=== PATIENT | female | born 1945 | race Caucasian/White ===

== ENCOUNTER 2018-10-22 12:53 | Emergency (ER) | payer OTHER, MEDICARE ==
--- OUTSIDE RECORDS SUMMARY | 2018-10-22 12:56 | XMS REPORT | Clinical Summary ---
:1945 Author Organization [facility] Address [address] [place] [address] Care Team Providers Name Role Phone Asked, No Pcp Primary Care Provider Unavailable Allergies Active Allergy Reactions Severity Noted Date Comments Codeine GI Intolerance 04/07/2018 Medications Medication Sig Dispensed Refills Start Date End Date Status losartan-hydrochlo Take 1 tablet by 0 Active rothiazide mouth daily. (HYZAAR) 50-12.5 mg per tablet tiotropium Place 1 capsule 0 Active (SPIRIVA) 18 mcg into inhaler and per inhalation inhale once capsule daily. fluticasone-vilant Inhale 1 0 Active alejandro (BREO inhalations once ELLIPTA) 100-25 daily. mcg/dose blister with device powder for inhalation simvastatin Take 40 mg by 0 Active (ZOCOR) 40 MG mouth nightly. tablet carvedilol (COREG) Take 3.125 mg by 0 Active 3.125 MG tablet mouth 2 (two) times a day with meals. fexofenadine Take 180 mg by 0 Active (MARYJANE) 180 MG mouth daily. tablet MULTIVITAMIN ORAL Take by mouth. 0 Active calcium carb/vit Take by mouth. 0 Discontinued D3/minerals 8 (CALCIUM-VITAMIN D ORAL) aspirin (ECOTRIN) Take 81 mg by 0 Discontinued 81 MG enteric mouth daily. 8 coated tablet naproxen sodium Take by mouth 0 Discontinued (ALEVE) 220 mg nightly. 8 capsule traMADol (ULTRAM) Take 1 tablet 45 tablet 0 04/16/2018 50 mg tablet (50 mg total) by 8 mouth every 6 (six) hours as needed for moderate pain for up to 15 days. methocarbamol Take 1 tablet 120 tablet 0 04/16/2018 (ROBAXIN) 500 MG (500 mg total) 8 tablet by mouth every 8 (eight) hours as needed for muscle spasms for up to 30 days. Active Problems Problem Noted Date Lumbar stenosis 04/15/2018 Encounters Date Type Specialty Care Team Description 04/15/2018 Surgery General Surgery Niru Rosas LUMBAR LAMINECTOMY MD Gautam L3-L5 04/15/2018 Anesthesia Event General Surgery Bree Srivastava NP 04/15/2018 - Hospital Encounter Neurosurgery Niru Rosas Lumbar stenosis with 04/16/2018 MD Gautam neurogenic claudication 04/07/2018 Hospital Encounter Radiology Lissy Parham Preop testing MD Lucio 04/07/2018 Pre-Admit Testing Pre-Admission Niru Rosas Preop testing Appointment Testing MD Gautam (Primary Dx) 04/02/2018 Hospital Encounter Radiology Niru Rosas Low back pain, MD Gautam unspecified back pain laterality, unspecified chronicity, with sciatica presence unspecified 04/02/2018 Transcribe Orders Access Niru Rosas Low back pain, MD Gautam unspecified back pain laterality, unspecified chronicity, with sciatica presence unspecified (Primary Dx) after 10/21/2017 Social History Tobacco Use Types Packs/Day Years Used Date Current Every Day Smoker Cigarettes 1 Started: 04/07/1966 Smokeless Tobacco: Former User Tobacco Cessation: Ready to Quit: Yes Alcohol Use Drinks/Week oz/Week Comments Yes 10 Glasses of wine 6.0 Sex Assigned at Date Recorded Not on file Job Start Date Occupation Industry Not on file Not on file Not on file Travel History Travel Start Travel End No recent travel history available. Last Filed Vital Signs Vital Sign Reading Time Taken Blood Pressure 132/66 04/16/2018 8:07 AM CDT Pulse 60 04/16/2018 8:07 AM CDT Temperature 36.3 C (97.3 F) 04/16/2018 8:07 AM CDT Respiratory Rate 19 04/16/2018 8:07 AM CDT Oxygen Saturation 97% 04/16/2018 8:07 AM CDT Inhaled Oxygen Concentration - - Weight 75.5 kg (166 lb 8 oz) 04/15/2018 6:06 AM CDT Height 154.9 cm (5' 1") 04/15/2018 6:06 AM CDT Body Mass Index 31.46 04/15/2018 6:06 AM CDT Plan of Treatment Health Maintenance Due Date Last Done Comments BREAST CANCER SCREENING 1995 COLON CANCER SCREENING 1995 SHINGLES VACCINES (#1) 1995 65+ PNEUMOCOCCAL VACCINE (1 of 2 - PCV13) 2010 PNEUMOCOCCAL POLYSACCHARIDE VACCINE AGE 65 AND OVER 2010 INFLUENZA VACCINE 02/04/2019 Procedures Procedure Name Priority Date/Time Associated Comments Diagnosis SURGICAL PATHOLOGY Routine 04/15/2018 10:54 Results for this REQUEST AM CDT procedure are in the results section. XR LUMBAR SPINE 1 VW Routine 04/15/2018 10:10 Results for this AM CDT procedure are in the results section. XR LUMBAR SPINE 1 VW Routine 04/15/2018 9:14 Results for this AM CDT procedure are in the results section. XR LUMBAR SPINE 1 VW Routine 04/15/2018 9:13 Results for this AM CDT procedure are in the results section. NH AN ELECTIVE Routine 04/15/2018 9:11 ENDOTRACHEAL AIRWAY AM CDT Procedure Note - Amilcar Schofield CRNA - 04/15/2018 9:11 AM CDT Airway Date/Time: 04/15/2018 8:12 AM Performed by: AMILCAR SCHOFIELD Authorized by: KJ MURCIA Location: OR Urgency: Elective Difficult Airway: Yes Anesthesiologist: KJ MURCIA Resident/AVIATION ENGINEER/AA: AMILCAR SCHOFIELD Performed by: anesthesiologist Preoxygenated with 100% O2: Yes C-spine Precautions Maintained Throughout: Yes Mask Ventilation: Easy mask Final Airway Type: Endotracheal airway Final Endotracheal Airway: ETT Cuffed: Yes Technique Used: Direct laryngoscopy Devices/Methods Used in Placement: Intubating stylet Insertion Site: Oral Blade Type: Arroyo Laryngoscope Blade/Videolaryngoscope Blade Size: 2 ETT Size (mm): 7.0 Cuff at minimum occlusion pressure: Yes Measured from: Lips ETT to Lips (cm): 22 Placement Verified by: CO2 detection, direct visualization and equal breath sounds Laryngoscopic view: Grade IIb - view of arytenoids or posterior of glottis only Rapid Sequence Induction (RSI): No Modified RSI: No Number of Attempts at Approach: 2 DLx2, Arroyo 2 blade, initial attempt at intubation unsuccessful due to poor view of glottis & unable to advance tube; second attempt successful w/ repositioning and BURP maneuver; 7.0 ETT placed through the cords; bilateral breath sounds present; EtCO2 present LAMINECTOMY, LUMBAR 04/15/2018 8:00 AM CDT Lumbar stenosis with neurogenic claudication Case Notes PRONE POSITION, PRO AXIS TABLE, MICROSCOPE, AQUAMANTYS, 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 ESTIMATED GFR Routine 04/07/2018 3:08 Results for this PM CDT procedure are in the results section. PARTIAL THROMBOPLASTIN Routine 04/07/2018 3:08 Preop testing Results for this TIME (PTT) PM CDT procedure are in the results section. PROTHROMBIN TIME WITH Routine 04/07/2018 3:08 Preop testing Results for this INR PM CDT procedure are in the results section. BASIC METABOLIC PANEL Routine 04/07/2018 3:08 Preop testing Results for this PM CDT procedure are in the results section. HC COMPLETE BLD COUNT Routine 04/07/2018 3:08 Preop testing Results for this W/AUTO DIFF PM CDT procedure are in the results section. XR LUMBAR SPINE Routine 04/02/2018 12:37 Low back pain, Results for this COMPLETE W BENDING PM CDT unspecified back procedure are in pain laterality, the results unspecified section. chronicity, with sciatica presence unspecified after 10/21/2017 Results Surgical pathology request (04/15/2018 10:54 AM CDT) [facility] DEPARTMENT OF PATHOLOGY AND GENOMIC MEDICINE Surgical pathology report See link below for PDF [facility] DEPARTMENT OF Lab Report PATHOLOGY AND GENOMIC MEDICINE Result status This is Final Report [facility] DEPARTMENT OF for [id number] PATHOLOGY AND GENOMIC MEDICINE Performing Organization Address City/State/Zipcode Phone Number [facility] DEPARTMENT OF PATHOLOGY AND [address] [place] [address] [employer] MEDICINE XR Lumbar Spine 1 Vw (04/15/2018 10:10 AM CDT)Only the most recent of3 resultswithin the time period is included. Narrative Performed At EXAMINATION: XR LUMBAR SPINE 1 VW [facility] CLINICAL HISTORY: Intraoperative COMPARISON:None IMPRESSION: Single lateral intraoperative radiograph of the lumbar spine was obtained.The most inferior fully formed disc is presumed L5-S1. Posterior localizing instrument tips are located at the L5-S1 disc space posteriorly and posterior inferior aspect of L3 vertebral body. [id number] Procedure Note Interface, Radiology Results Incoming - 04/15/2018 10:25 AM CDT EXAMINATION: XR LUMBAR SPINE 1 VW CLINICAL HISTORY: Intraoperative COMPARISON: None IMPRESSION: Single lateral intraoperative radiograph of the lumbar spine was obtained. The most inferior fully formed disc is presumed L5-S1. Posterior localizing instrument tips are located at the L5-S1 disc space posteriorly and posterior inferior aspect of L3 vertebral body. [facility]-[id number] Performing Organization Address [facility] Phone Number [facility] [address] [place] [address] XR Chest 2 Vw (04/07/2018 4:08 PM CDT) Narrative Performed At Examination: XR CHEST 2 VW [facility] Clinical history: Z01.818 Encounter for other preprocedural examination, preop Comparison: September 21, 1998 Impression: 1. A 0.8 cm nodule overlying the left anterior fourth rib lateral of the left hilum is concerning for a true parenchymal nodule. 2. There is no infiltrate or effusion. The heart and pulmonary vasculature are within normal limits. 3. There is no acute osseous pathology. [facility]-[id number] Procedure Note Interface, Radiology Results Incoming - 04/07/2018 4:13 PM CDT Examination: XR CHEST 2 VW Clinical history: Z01.818 Encounter for other preprocedural examination, preop Comparison: September 21, 1998 Impression: 1. A 0.8 cm nodule overlying the left anterior fourth rib lateral of the left hilum is concerning for a true parenchymal nodule. 2. There is no infiltrate or effusion. The heart and pulmonary vasculature are within normal limits. 3. There is no acute osseous pathology. [facility]-[id number] Performing Organization Address [facility] Phone Number [facility] [address] [place] [address] Estimated GFR (04/07/2018 3:08 PM CDT) Estimated GFR >=90 mL/min/1.73 m2 [facility] DEPARTMENT OF Comment: PATHOLOGY AND GENOMIC CatergoryUnitsInterpretation MEDICINE G1 >=90 Normal or high G2 60-89Mildly decreased [id number] to moderately decreased [id number] to severely decreased G4 15-29Severely decreased G5 <15Kidney failure The eGFR was calculated using the Chronic Kidney Disease Epidemiology Collaboration (CKD-EPI) equation. Interpretation is based on recommendations of the National Kidney Foundation-Kidney Disease Outcomes Quality Initiative (NKF-KDOQI) published in 2014. Specimen Plasma specimen Performing Organization Address [facility] Phone Number [facility] DEPARTMENT OF PATHOLOGY AND [address] [place] [address] Partial thromboplastin time, activated (04/07/2018 3:08 PM CDT) PTT 28.9 23.0 - 36.0 sec [facility] DEPARTMENT OF PATHOLOGY Comment: AND [facility] PTT therapeutic range for unfractionated heparin is 61.0-112.0 seconds which corresponds to Anti-Xa 0.3-0.7 U/ml. Specimen Blood Performing Organization Address [facility] Phone Number [facility] DEPARTMENT OF PATHOLOGY AND [address] [place] [address] Prothrombin time with INR (04/07/2018 3:08 PM CDT) Prothrombin time 12.7 12.0 - 15.0 sec [facility] DEPARTMENT OF PATHOLOGY AND GENOMIC MEDICINE INR 0.9 [facility] DEPARTMENT OF Comment: PATHOLOGY AND GENOMIC The International Normalized Ratio (INR) is a therapeutic MEDICINE monitoring tool for patients who are stable on oral anticoagulant therapy. An INR of 2.0-3.0 is suggested for deep vein thrombosis/pulmonary embolism. Specimen Blood Performing Organization Address [facility] Phone Number [facility] DEPARTMENT OF PATHOLOGY AND [address] [place] [address] CBC with platelet and differential (04/07/2018 3:08 PM CDT) WBC 7.64 4.50 - 11.00 k/uL [facility] DEPARTMENT OF PATHOLOGY AND GENOMIC MEDICINE RBC 4.58 4.20 - 5.50 m/uL [facility] DEPARTMENT OF PATHOLOGY AND GENOMIC MEDICINE HGB 15.9 12.0 - 16.0 g/dL [facility] DEPARTMENT OF PATHOLOGY AND GENOMIC MEDICINE HCT 46.8 37.0 - 47.0 % [facility] DEPARTMENT OF PATHOLOGY AND GENOMIC MEDICINE MCV 102.2 (H) 82.0 - 100.0 fL [facility] DEPARTMENT OF PATHOLOGY AND GENOMIC MEDICINE MCH 34.7 (H) 27.0 - 34.0 pg [facility] DEPARTMENT OF PATHOLOGY AND GENOMIC MEDICINE MCHC 34.0 31.0 - 37.0 g/dL [facility] DEPARTMENT OF PATHOLOGY AND GENOMIC MEDICINE RDW - SD 46.4 37.0 - 55.0 fL [facility] DEPARTMENT OF PATHOLOGY AND GENOMIC MEDICINE MPV 10.8 8.8 - 13.2 fL [facility] DEPARTMENT OF PATHOLOGY AND GENOMIC MEDICINE Platelet count 267 150 - 400 k/uL [facility] DEPARTMENT OF PATHOLOGY AND GENOMIC MEDICINE Nucleated RBC 0.00 /100 WBC [facility] DEPARTMENT OF PATHOLOGY AND GENOMIC MEDICINE Neutrophils 60.5 39.0 - 69.0 % [facility] DEPARTMENT OF PATHOLOGY AND GENOMIC MEDICINE Lymphocytes 24.7 (L) 25.0 - 45.0 % [facility] DEPARTMENT OF PATHOLOGY AND GENOMIC MEDICINE Monocytes 10.9 (H) 0.0 - 10.0 % [facility] DEPARTMENT OF PATHOLOGY AND GENOMIC MEDICINE Eosinophils 2.6 0.0 - 5.0 % [facility] DEPARTMENT OF PATHOLOGY AND GENOMIC MEDICINE Basophils 0.9 0.0 - 1.0 % [facility] DEPARTMENT OF PATHOLOGY AND GENOMIC MEDICINE Immature granulocytes 0.4Comment: 0.0 - 1.0 % [facility] DEPARTMENT OF "Immature PATHOLOGY AND GENOMIC granulocytes" MEDICINE (promyelocytes, myelocytes, metamyelocytes) Specimen Blood Performing Organization Address City/[facility] Phone Number [facility] DEPARTMENT OF PATHOLOGY AND [address] [place] [id number] [employer] MEDICINE Basic metabolic panel (04/07/2018 3:08 PM CDT) Sodium 141 135 - 148 mEq/L [facility] DEPARTMENT OF PATHOLOGY AND GENOMIC MEDICINE Potassium 3.9 3.5 - 5.0 mEq/L [facility] DEPARTMENT OF PATHOLOGY AND GENOMIC MEDICINE Chloride 97 (L) 98 - 112 mEq/L [facility] DEPARTMENT OF PATHOLOGY AND GENOMIC MEDICINE CO2 27 24 - 31 mEq/L [facility] DEPARTMENT OF PATHOLOGY AND GENOMIC MEDICINE Anion gap 17@ANIO (H) 7 - 15 mEq/L [facility] DEPARTMENT OF PATHOLOGY AND GENOMIC MEDICINE BUN 14 8 - 23 mg/dL [facility] DEPARTMENT OF PATHOLOGY AND GENOMIC MEDICINE Creatinine 0.58 0.50 - 0.90 mg/dL [facility] DEPARTMENT OF PATHOLOGY AND GENOMIC MEDICINE Glucose 83 65 - 99 mg/dL [facility] DEPARTMENT OF PATHOLOGY AND GENOMIC MEDICINE Calcium 10.0 8.8 - 10.2 mg/dL [facility] DEPARTMENT OF PATHOLOGY AND GENOMIC MEDICINE Specimen Plasma specimen Performing Organization Address City/[facility] Phone Number [facility] DEPARTMENT OF PATHOLOGY AND [address] [place] [id number] GENOMIC MEDICINE XR Lumbar Spine Complete W Flex and Ext (04/02/2018 12:37 PM CDT) Narrative Performed At EXAMINATION: XR LUMBAR SPINE COMPLETE W FLEX & EXTEND [facility] CLINICAL HISTORY: M54.5 Low back pain, M54.5 COMPARISON:None IMPRESSION: 2 mm retrolisthesis L1 on L2 and L2 on L3, and 4 mm anterolisthesis L4 on L5, degenerative, which is not change on flexion or extension. Mild disc height loss L1 to and L3-4. Mild endplate sclerosis and small anterior osteophytes throughout the lumbar spine. There is at least moderate facet arthropathy L3-4, L4-5, and L5-S1 bilaterally. [id number] Procedure Note Hm Interface, Radiology Results Incoming - 04/02/2018 2:58 PM CDT EXAMINATION: XR LUMBAR SPINE COMPLETE W FLEX & EXTEND CLINICAL HISTORY: M54.5 Low back pain, M54.5 COMPARISON: None IMPRESSION: 2 mm retrolisthesis L1 on L2 and L2 on L3, and 4 mm anterolisthesis L4 on L5, degenerative, which is not change on flexion or extension. Mild disc height loss L1 to and L3-4. Mild endplate sclerosis and small anterior osteophytes throughout the lumbar spine. There is at least moderate facet arthropathy L3-4, L4-5, and L5-S1 bilaterally. [id number] Performing Organization Address City/State/Zipcode Phone Number [facility] [address] [place] [address] after 10/21/2017 Insurance Payer Benefit Plan / Group Subscriber ID Type Phone Address MEDICARE MEDICARE PART A AND B xxxxxxxxxx Medicare [place], [place] AARP AARP SUPPLEMENT xxxxxxxxxxx Commercial (Home) [place] [address] Advance Directives Patient has advance care planning documents on file. For more information, please contact:Delroy [facility] [place] [address]
--- NOTE | 2018-10-22 13:43 | RAD REPORT ---
EXAM DESCRIPTION: RAD - Wrist Right 3 View - 10/22/2018 1:33 pm CLINICAL HISTORY: Fall, right wrist pain COMPARISON: None. FINDINGS: Transverse fracture of the distal radial metaphysis is present. There is no distraction or angulation deformity. No pathologic component. Distal ulna is intact. No carpal bone fracture identi fied. Widening of the scapholunate joint space is present. This could be acute or chronic. No carpal bone dislocation. Moderate degenerative change involves the trapezium articulation with the scaphoid and first metacarpal. No foreign body. IMPRESSION: Distal right radius fracture without distraction or angulation deformity. Degenerative changes are present as detailed.
--- NOTE | 2018-10-22 13:52 | RAD REPORT ---
EXAM DESCRIPTION: RAD - Hand Right 3 View - 10/22/2018 1:33 pm CLINICAL HISTORY: Fall, hand and wrist pain COMPARISON: None. FINDINGS: Right radius fracture is detailed in separate report. No fracture of the hand. Prominent degenerative changes involve the DIP joints second and third digit s. Significant but less prominent degenerative change seen throughout the remainder of the IP joints. Slight joint space narrowing at the third MCP joint. There advanced degenerative changes at the firs t MCP joint with joint space narrowing, spurring and minimal subluxation of the first proximal phalan x. No foreign body. IMPRESSION: Advanced degenerative changes at the IP joints as detailed. No fracture of the hand or o ther acute finding. Distal radius fracture is separately detailed.
--- NOTE | 2018-10-22 14:09 | EDPHYS ---
Physician Documentation [facility] Name: Inocencia Rucker Age: 73 yrs Sex: Female : 1945 Arrival Date: 10/22/2018 Time: 12:56 Bed 24 Private MD: Rachelle Mead C ED Physician Andres Franks HPI: 10/22 13:14 This 73 yrs old Female presents to ER via Ambulatory with complaints of Arm pm1 Injury. 13:14 The patient or guardian complains of pain, swelling. The complaints affect the right pm1 wrist and PIP of right middle finger. Context: The problem was sustained at home, resulted from a fall, while walking. Onset: The symptoms/episode began/occurred just prior to arrival. Treatment prior to arrival includes: no previous treatment. Modifying factors: The symptoms are alleviated by remaining still, the symptoms are aggravated by movement. Associated signs and symptoms: Pertinent negatives: decreased range of motion, deformity, fever, numbness, tingling. Severity of symptoms: in the emergency department the symptoms are actually worse. The patient has not experienced similar symptoms in the past. The patient has not recently seen a physician. Patient was carrying a pot and tripped over her feet. Landed on her left hip area and on right arm. No head injury, headache, neck pain, LOC, dizziness, or chest pain. Historical: - Allergies: 13:00 Codeine; sg - PMHx: 13:00 Hypertension; sg - PSHx: 13:00 None; sg - Immunization history:: Adult Immunizations up to date. - Social history:: Smoking status: Patient/guardian denies using tobacco. - Ebola Screening: : Patient negative for fever greater than or equal to 101.5 degrees Fahrenheit, and additional compatible Ebola Virus Disease symptoms Patient denies exposure to infectious person Patient denies travel to an Ebola-affected area in the 21 days before illness onset No symptoms or risks identified at this time. ROS: 13:14 Constitutional: Negative for fever, chills, and weight loss, Eyes: Negative for injury, pm1 pain, redness, and discharge, ENT: Negative for injury, pain, and discharge, Neck: Negative for injury, pain, and swelling, Cardiovascular: Negative for chest pain, palpitations, and edema, Respiratory: Negative for shortness of breath, cough, wheezing, and pleuritic chest pain, Abdomen/GI: Negative for abdominal pain, nausea, vomiting, diarrhea, and constipation, Back: Negative for injury and pain. 13:14 Skin: Negative for injury, rash, and discoloration, Neuro: Negative for headache, weakness, numbness, tingling, and seizure. 13:14 MS/extremity: Positive for pain, swelling, of the right wrist and PIP of right middle finger. Exam: 13:14 Constitutional: This is a well developed, well nourished patient who is awake, alert, pm1 and in no acute distress. Head/Face: Normocephalic, atraumatic. Eyes: Pupils equal round and reactive to light, extra-ocular motions intact. Lids and lashes normal. Conjunctiva and sclera are non-icteric and not injected. Cornea within normal limits. Periorbital areas with no swelling, redness, or edema. ENT: Nares patent. No nasal discharge, no septal abnormalities noted. Tympanic membranes are normal and external auditory canals are clear. Oropharynx with no redness, swelling, or masses, exudates, or evidence of obstruction, uvula midline. Mucous membranes moist. Neck: Trachea midline, no thyromegaly or masses palpated, and no cervical lymphadenopathy. Supple, full range of motion without nuchal rigidity, or vertebral point tenderness. No Meningismus. Chest/axilla: Normal chest wall appearance and motion. Nontender with no deformity. No lesions are appreciated. Cardiovascular: Regular rate and rhythm with a normal S1 and S2. No gallops, murmurs, or rubs. Normal PMI, no JVD. No pulse deficits. Respiratory: Lungs have equal breath sounds bilaterally, clear to auscultation and percussion. No rales, rhonchi or wheezes noted. No increased work of breathing, no retractions or nasal flaring. Abdomen/GI: Soft, non-tender, with normal bowel sounds. No distension or tympany. No guarding or rebound. No evidence of tenderness throughout. Back: No spinal tenderness. No costovertebral tenderness. Full range of motion. Skin: Warm, dry with normal turgor. Normal color with no rashes, no lesions, and no evidence of cellulitis. 13:14 Musculoskeletal/extremity: Extremities: grossly normal except: noted in the right wrist: swelling, tenderness, There is no evidence of decreased ROM, deformity, noted in the PIP of right middle finger: no evidence of decreased ROM, deformity, Patient able to move right middle finger full range of motion, Circulation is intact in all extremities. Vital Signs: 12:59 BP 148 / 101; Pulse 92; Resp 16; Temp 97.6; Pulse Ox 98% on R/A; Weight 102.06 kg; Pain sg 10/10; 13:20 BP 140 / 96 LA Sitting (auto/reg); Pulse 87; Resp 18; Pulse Ox 98% on R/A; Pain 10/10; jp3 Procedures: 15:00 Splinting: Splint applied to right wrist using Orthoglass splint, applied by myself. pm1 Examined by me, post splint application: neurovascular intact, 2+ distal pulses palpable, brisk capillary refill noted, Patient tolerated well, right wrist sugar tong splint supporting dorsal and ventral aspect of PIP or right middle finger. MDM: 13:09 Patient medically screened. pm1 13:14 ED course: Patient offered pain medication, patient refused because she does not like pm1 the feeling of narcotics. Patient reported left hip pain on fall. Able to walk without difficulty. Offered left hip x-ray, patient refused. 14:04 Data reviewed: vital signs. Data interpreted: Pulse oximetry: on room air is 98 %. pm1 Interpretation: normal. Counseling: I had a detailed discussion with the patient and/or guardian regarding: the historical points, exam findings, and any diagnostic results supporting the discharge/admit diagnosis, radiology results, the need for outpatient follow up, for definitive care, a orthopedic surgeon, to return to the emergency department if symptoms worsen or persist or if there are any questions or concerns that arise at home. 10/22 13:14 Order name: Hand Right 3 View XRAY; Complete Time: 14:02 pm1 10/22 13:14 Order name: Wrist Right 3 View XRAY; Complete Time: 14:02 pm1 10/22 14:04 Order name: Sugar Tong Forearm Splint; Complete Time: 14:37 pm1 10/22 14:09 Order name: Sling; Complete Time: 14:23 pm1 Administered Medications: No medications were administered Disposition: 10/22/18 14:09 Discharged to Home. Impression: Closed distal right radius fracture - no distraction, no angulation , Unspecified sprain of right middle finger. - Condition is Stable. - Discharge Instructions: Cast or Splint Care, Adult, Finger Sprain, Adult, Wrist Fracture Treated With Immobilization, How to Use a Sling. - Medication Reconciliation Form, Thank You Letter, Antibiotic Education, Prescription Opioid Use form. - Follow up: Emergency Department; When: As needed; Reason: Worsening of condition. Follow up: Lucio Redding MD; When: 2 - 3 days; Reason: Recheck today's complaints, Continuance of care, Re-evaluation by your physician. - Problem is new. - Symptoms have improved. Addendum: 10/25/2018 00:11 Co-signature as Attending Physician, Andres Franks MD. g s Signatures: Dispatcher [employer] EDMS Francisco Stevenson RN RN sg Adonis Gregg NP [employer] pm1 Zenaida Cade RN RN tw2 Andres Franks MD MD Corrections: (The following items were deleted from the chart) 10/22 14:09 14:09 10/22/2018 14:09 Discharged to Home. Impression: Closed distal right radius pm1 fracture - no distraction, no angulation . Condition is Stable. Forms are Medication Reconciliation Form, Thank You Letter, Antibiotic Education, Prescription Opioid Use. Follow up: Emergency Department; When: As needed; Reason: Worsening of condition. Follow up: Lucio Redding; When: 2 - 3 days; Reason: Recheck today's complaints, Continuance of care, Re-evaluation by your physician. Problem is new. Symptoms have improved. pm1 14:57 14:09 10/22/2018 14:09 Discharged to Home. Impression: Closed distal right radius tw2 fracture - no distraction, no angulation ; Unspecified sprain of right middle finger. Condition is Stable. Forms are Medication Reconciliation Form, Thank You Letter, Antibiotic Education, Prescription Opioid Use. Follow up: Emergency Department; When: As needed; Reason: Worsening of condition. Follow up: Lucio Redding; When: 2 - 3 days; Reason: Recheck today's complaints, Continuance of care, Re-evaluation by your physician. Problem is new. Symptoms have improved. pm1
--- NOTE | 2018-10-22 14:09 | ER ---
Nurse's Notes [facility] Name: Inocencia Rucker Age: 73 yrs Sex: Female : 1945 Arrival Date: 10/22/2018 Time: 12:56 Bed 24 Private MD: Rachelle Mead C Diagnosis: Closed distal right radius fracture - no distraction, no angulation ;Unspecified sprain of right middle finger Presentation: 10/22 12:57 Presenting complaint: Patient states: lost my balance and fell, landed on right wrist sg and right side of my butt, reports pain and swelling, denies LOC or head injury at this time. 13:00 Transition of care: patient was not received from another setting of care. Onset of sg symptoms was October 22, 2018. Risk Assessment: Do you want to hurt yourself or someone else? Patient reports no desire to harm self or others. Initial Sepsis Screen: Does the patient meet any 2 criteria? No. Patient's initial sepsis screen is negative. Does the patient have a suspected source of infection? No. Patient's initial sepsis screen is negative. Care prior to arrival: None. 13:00 Method Of Arrival: Ambulatory sg 13:00 Acuity: SYLVAIN 4 sg Triage Assessment: 13:18 General: Appears in no apparent distress. well groomed. General: Behavior is calm, tw2 cooperative, appropriate for age. Pain: Complains of pain in right arm. Musculoskeletal: Circulation, motion, and sensation intact. Range of motion: intact in all extremities. Injury Description: n/a. Historical: - Allergies: 13:00 Codeine; sg - PMHx: 13:00 Hypertension; sg - PSHx: 13:00 None; sg - Immunization history:: Adult Immunizations up to date. - Social history:: Smoking status: Patient/guardian denies using tobacco. - Ebola Screening: : Patient negative for fever greater than or equal to 101.5 degrees Fahrenheit, and additional compatible Ebola Virus Disease symptoms Patient denies exposure to infectious person Patient denies travel to an Ebola-affected area in the 21 days before illness onset No symptoms or risks identified at this time. Screenin:20 Abuse screen: Denies threats or abuse. Nutritional screening: No deficits noted. tw2 Tuberculosis screening: No symptoms or risk factors identified. Fall Risk None identified. Assessment: 13:19 General: Appears in no apparent distress. well groomed, Behavior is calm, cooperative, tw2 appropriate for age. Pain: Complains of pain in right arm. Neuro: Level of Consciousness is awake, alert, obeys commands, Oriented to person, place, time, situation. Cardiovascular: Patient's skin is warm and dry. Respiratory: Reports Respiratory effort is even, unlabored, Respiratory pattern is regular. GI: No signs and/or symptoms were reported involving the gastrointestinal system. : No signs and/or symptoms were reported regarding the genitourinary system. EENT: No signs and/or symptoms were reported regarding the EENT system. Derm: No signs and/or symptoms reported regarding the dermatologic system. Musculoskeletal: Circulation, motion, and sensation intact. Range of motion: intact in all extremities. 14:48 Reassessment: Patient appears in no apparent distress at this time. No changes from tw2 previously documented assessment. Patient and/or family updated on plan of care and expected duration. Pain level reassessed. Patient is alert, oriented x 3, equal unlabored respirations, skin warm/dry/pink. provider at bedside applying splint at this time. Vital Signs: 12:59 BP 148 / 101; Pulse 92; Resp 16; Temp 97.6; Pulse Ox 98% on R/A; Weight 102.06 kg; Pain sg 10/10; 13:20 BP 140 / 96 LA Sitting (auto/reg); Pulse 87; Resp 18; Pulse Ox 98% on R/A; Pain 10/10; jp3 ED Course: 12:56 Patient arrived in ED. mr 12:56 Rachelle Mead MD is Private Physician. mr 13:00 Triage completed. sg 13:00 Arm band placed on. sg 13:05 Bed in low position. Call light in reach. Adult w/ patient. tw2 13:05 Warm blanket given. jp3 13:05 Pulse ox on. NIBP on. jp3 13:09 Adonis Gregg NP is PHCP. pm1 13:09 Andres Franks MD is Attending Physician. pm1 13:17 Zenaida Cade RN is Primary Nurse. tw2 13:33 X-ray completed. Portable x-ray completed in exam room. Patient tolerated procedure mh1 well. 13:33 Hand Right 3 View XRAY In Process Unspecified. EDMS 13:33 Wrist Right 3 View XRAY In Process Unspecified. EDMS 14:05 Lucio Redding MD is Referral Physician. pm1 14:39 No provider procedures requiring assistance completed. Patient did not have IV access tw2 during this emergency room visit. Administered Medications: No medications were administered Outcome: 14:09 Discharge ordered by MD. pm1 14:39 Discharged to home ambulatory, with family. tw2 14:39 Condition: stable 14:39 Discharge instructions given to patient, family, Instructed on discharge instructions, follow up and referral plans. sling and splint care Demonstrated understanding of instructions, follow-up care. 14:57 Patient left the ED. tw2 Signatures: Dispatcher [employer] EDMS Francisco Stevenson, VALDO RN Kathia Marshall mr RoscoeKristi 1 Adonis Gregg, JEWEL WOOL HANKER pm1 Zenaida Cade RN RN tw2 Gerry Crenshaw jp3
[2018-10-22 15:34] VITALS: TEMP 97.6; O2SAT 98
[2018-10-22 15:36] VITALS: BP 140/96
== END 2018-10-22 14:57 | disposition home or self-care (01) ==
LOC: ER 12:53
PROC: 2W3CX1Z Immobilization of Right Lower Arm using Splint (ICD-10-PCS; principal; 2018-10-22)
DX: S52.501A Unspecified fracture of the lower end of right radius, initial encounter for closed fracture (principal); S63.612A Unspecified sprain of right middle finger, initial encounter; W01.0XXA Fall on same level from slipping, tripping and stumbling without subsequent striking against object, initial encounter; Y93.89 Activity, other specified; Y92.009 Unspecified place in unspecified non-institutional (private) residence as the place of occurrence of the external cause; Z88.5 Allergy status to narcotic agent; I10 Essential (primary) hypertension
CPT/HCPCS: 99283

== ENCOUNTER 2022-03-28 13:06 | Day surgery (SDC) | payer OTHER, MEDICARE ==
--- NOTE | 2022-03-26 11:29 | RAD REPORT ---
EXAM DESCRIPTION: RAD - Chest Pa And Lat (2 Views) - 03/26/2022 11:13 am CLINICAL HISTORY: Pre op pending heart catheterization COMPARISON: CT chest 04/25/2021, portable chest 08/13/2015 TECHNIQUE: Frontal and lateral views of the chest were obtained. FINDINGS: The lungs are fibrotic. No acute infiltrate is seen. No failure or volume overload. Patient has scattered pulmonary nodules present. These are not changed size from April 2021 CT ches t study. Lack of growth over a 1 year interval would be favorable for a benign process. The April 07 CT report indicated the nodules were stable from even earlier examinations. Heart size is normal and central vasculature is within normal limits. No pleural effusion or pneumot horax seen. No acute bony finding noted. Osteopenic and degenerative bony changes are present. Acut e aortic process is not identifiable. IMPRESSION: No acute cardiopulmonary process. The above detailed findings are stable from prior imaging.
[2022-03-26 11:33] LABS: SARS-CoV-2 Antigen Rapid Res Negative (Negative)
[2022-03-26 11:44] LABS: Potassium 3.9 mmol/L (3.5-5.1)
[2022-03-26 11:55] LABS: RBC Red Blood Cell Count 4.78 M/uL (3.86-4.86)
[2022-03-26 11:56] LABS: Hematocrit 47.6 % (36.0-45.0); Lymphocytes % 13.3 % (15.3-44.8); MCV 99.6 fL (80-100); MPV 8.5 fL (7.6-11.3)
[2022-03-26 12:05] LABS: Protime INR 0.86
--- NOTE | 2022-03-27 06:33 | EKG ---
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
[~2022-03-28 13:06] MED LIST: HEPA 1000U/500MLS 2,000 UNIT/1,000 ML BAG IV ONE; LIDOCAINE 1% MPF 30 ML VIAL ONE
[2022-03-28] MEDS ORDERED: MIDAZOLAM HCL 2 MG/2 ML INJ ONE (13:10)
[2022-03-28] MEDS ORDERED: HEPARIN 5000 UNIT/ML 1 ML VIAL ONE (13:10)
[2022-03-28] MEDS ORDERED: FENTANYL CITR 100 MCG/2 ML ONE (13:10)
[2022-03-28] MEDS ORDERED: TICAGRELOR 90 MG TABLET PO ONE (13:12)
[2022-03-28] MEDS ORDERED: ASPIRIN 325 MG TAB ONE (13:12)
[2022-03-28] MEDS ORDERED: CLOPIDOGREL 75 MG TABLET ONE (13:12)
[2022-03-28] MEDS ORDERED: ATROPINE SULF 1 MG/10 ML SYR IV ONE (13:12)
[2022-03-28] MEDS ORDERED: NA CHLORIDE 0.9% 500 ML ONE (13:32)
[2022-03-28] MEDS ORDERED: ONDANSETRON 4 MG/2 ML VIAL ONE (13:58)
[2022-03-28 15:13] VITALS: TEMP 97
--- NOTE | 2022-03-28 15:29 | OP ---
Date of Procedure: 03/28/2022 Surgeon: BRIE PACE Procedures Performed: 1.Selective coronary angiogram. 2.Left heart catheterization. 3.Distal aortogram with runoff and peripheral angiogram. Access: Right radial artery 6-Icelandic closed with TR band. Complications: None. Bleeding: Less than 20 mL. Anesthesia: Total sedation time was 0. No sedation was done. Complications: None. Indications: 1.Peripheral vascular disease with severe claudication. 2.Known coronary artery disease with unstable angina symptoms and significant shortness of breath. Description Of Procedure: After risks, benefits, alternatives were explained, the patient agreed to the procedure and signed informed consent. The patient was brought into the cardiac catheterization laboratory, prepped and draped in the usual sterile fashion. Then, we accessed right radial artery u sing pediatric micropuncture kit, placed a 6-Icelandic Slender sheath. I took 5-Icelandic [place] 4.0 cathet er into the aortic root, engaged the left main and right coronary artery, took standard views, and ca theter was pushed across the aortic valve into the LV, measured LVEDP and LA pressure and then pullba ck did not record any gradient. Then, I exchanged for long pigtail, placed into the distal aorta, pe rformed this aortogram and runoff all the way to the toes. I then removed the catheter and sheath, p laced TR band with good hemostasis. Findings: 1.Left main; very long with luminal irregularities. No significant stenosis. 2.LAD; moderate size vessel with mid 40% stenosis focally and then luminal irregularities, normal di agonal branches. 3.Left circumflex is very small with diffuse 20% stenosis. 4.RCA; very large and dominant, proximal 30%, then another lesion in the proximal segment about 40%, and then distal about 40% to 50%. 5.LVEDP slightly elevated at 40 mmHg. 6.LA pressure was normal at 9 mmHg. Conclusion: 1.Moderate coronary artery disease that is nonobstructive. 2.Normal LA pressure. 3.Borderline elevated LVEDP. Peripheral Angiogram: 1.Distal aorta appears aneurysmal. 2.Right common iliac has proximal 30% to 40% stenosis and then the right femoral artery, right SFA a nd profunda and below the knee circulation including anterior tibial, posterior tibial and peroneal a ll are with mild luminal irregularities; however, the vessels below the knee are very small, but no s ignificant disease. 3.The left common iliac has 40% focal stenosis, but good flow. Then, the left femoral and the left SFA and profunda and the 3 vessels below the knee were all with luminal irregularities. They were mi ld, but again small vessels throughout. Conclusion: 1.Moderate nonobstructive coronary artery disease. 2.Distal aorta aneurysm. 3.Moderate peripheral vascular disease. Plan: 1.Aggressive risk factor modification. 2.We will obtain abdominal aortic ultrasound to size the aneurysm and we will do good blood pressure control and surveillance on that. SR/MODL Voice ID: [id number] Report ID: [id number]
[2022-03-28 16:39] VITALS: BP 108/75; O2SAT 97
== END 2022-03-28 16:46 | disposition home or self-care (01) ==
LOC: CCL 13:06
PROVIDERS: ATTEND Internal Medicine
DX: I70.213 Atherosclerosis of native arteries of extremities with intermittent claudication, bilateral legs (principal); I25.10 Atherosclerotic heart disease of native coronary artery without angina pectoris; I71.4 Abdominal aortic aneurysm, without rupture; I10 Essential (primary) hypertension; E78.5 Hyperlipidemia, unspecified; Z87.891 Personal history of nicotine dependence; Z79.82 Long term (current) use of aspirin; Z79.52 Long term (current) use of systemic steroids; Z79.899 Other long term (current) drug therapy; Z88.5 Allergy status to narcotic agent; Z88.8 Allergy status to other drugs, medicaments and biological substances; Z20.822 Contact with and (suspected) exposure to COVID-19; Z82.49 Family history of ischemic heart disease and other diseases of the circulatory system
CPT/HCPCS: 93005; 85025; 80048; 36415 ×2; 85610; 85730; 71046; 75630; 93458; 76937; 87811; G0433; C1893; J1644 ×3; J7040; J2250; J2405; J3010

== ENCOUNTER 2022-08-06 00:57 | Emergency (ER) | payer OTHER, MEDICARE ==
--- OUTSIDE RECORDS SUMMARY | 2022-08-06 01:02 | XMS REPORT | Continuity of Care Document ---
:1945 Author Organization [facility] t Address [address] [place] [address] Care Team Providers Name Role Phone Asked, No Pcp Primary Care Physician Unavailable ADI BLACKMAN Attending Clinician Unavailable TONY RASHID Attending Clinician Unavailable TONY RASHID Attending Clinician Unavailable JORGE LUIS ADAMS Attending Clinician Unavailable Patricia Price Attending Clinician Unavailable Therapist, [facility] Attending Clinician Unavailable Jorge Luis Adams MD Attending Clinician Doctor Unassigned, [place] Attending Clinician Unavailable Tony Rashid DO Attending Clinician Payers Payer Name Policy Type Policy Number Effective Date Expiration Date S mak MEDICARE PART A AND [id number] 2011 B 00:00:00 MEDICARE PART A \T\ [id number] 2010 B 00:00:00 [facility] [id number] 2015 MEDICARE SUPPLEMENT 00:00:00 Problems Condition Condition Condition Status Onset Resolution Last Treating Co mments Source Name Details Category Date Date Treatment Clinician Date Lumbar Lumbar Disease Active 2017-07 [facility] stenosis stenosis 0-10 st 00:00: Hospita 00 l No known No known Disease Unive rs active active ity of problems problems [facility] Allergies, Adverse Reactions, Alerts Allergy Allergy Status Severity Reaction(s) Onset Inactive Treating Comm ents Source Name Type Date Date Clinician Zaid Suazo Active [facility] ty to 02-08 Health adverse 00:00: reaction 00 s Codeine Propensi Active GI 2017-07 [facility]i ty to Intolerance 0-02 st adverse 00:00: Hospita reaction 00 l s to drug CODEINE DRUG Active N/V 2015- Univers INGREDI 7 ity of 00:00: [place] 00 Medical Branch Codeine Propensi Active Nausea Univers ty to and/or 01-22 ity of adverse Vomiting 00:00: [place] reaction 00 Medical s Branch Social History Social Habit Start Date Stop Date Quantity Comments Source Exposure to 2022-07-13 2022-07-23 Not sure University of SARS-CoV-2 (event) 00:00:00 15:27:00 [facility] Cigarette 2022-07-23 2022-07-23 University of pack-years 00:00:00 00:00:00 [facility] Tobacco Comment 2022-07-23 2022-07-23 Tried patches - Univ ersity of 00:00:00 00:00:00 didn't work; gum [place] Me dical - bad tasting; Branch medication - Wellbutrin didn't work; Chantix did work - stopped taking it when she felt she'd stopped smoking. Alcohol Comment 2022-07-23 2022-07-23 white wine/day Unive rsity of 00:00:00 00:00:00 [facility] Tobacco use and 2018-04-17 2018-04-17 Former user [facility] t exposure 00:00:00 00:00:00 Hospital Alcohol intake 2018-04-17 2018-04-17 Current drinker Metho dist 00:00:00 00:00:00 of [facility] (finding) Cigarettes smoked 2018-04-07 2018-04-[address] current (pack per 00:00:00 00:00:00 Hospita l day) - Reported History of tobacco 2015-04-06 Passive smoker Un iversity of use 00:00:00 [facility] Sex [birth year] Gnosticism 00:00:00 00:00:00 Hospital Smoking Status Start Date Stop Date Source Smokes tobacco daily 2022-07-23 00:00:00 Univers ity of [facility] Tobacco smoking [facility] consumption unknown Ex-smoker 2016-01-23 00:00:00 2016-01-23 [facility] 00:00:00 Medical Branch Medications Ordered Filled Start Stop Current Ordering Indication Dosage Frequency Signature Comments Components Source Medication Medication Date Date Medication? Clinician (SIG) Name Name hydroCHLORO 2023-0 Yes 12.5mg Take 12.5 Univers thiazide 1-17 mg by ity of 12.5 mg 15:50: mouth in [place] capsule 37 the Medical morning. Branch Indication s: takes a tablet, @ 12.5 mg hydroCHLORO 2023-0 Yes 12.5mg Take 12.5 Univers thiazide 1-17 mg by ity of (MICROZIDE) 15:50: mouth in [place] 12.5 mg 37 the Medical capsule morning. Branch hydroCHLORO 2023-0 Yes 12.5mg Take 12.5 Univers thiazide 1-17 mg by ity of 12.5 mg 15:50: mouth in [place] capsule 37 the Medical morning. Branch Indication s: takes a tablet, @ 12.5 mg hydroCHLORO 2023-0 Yes 12.5mg Take 12.5 Univers thiazide 1-17 mg by ity of (MICROZIDE) 15:50: mouth in [place] 12.5 mg 37 the Medical capsule morning. Branch hydroCHLORO 2023-0 Yes 12.5mg Take 12.5 Univers thiazide 1-17 mg by ity of 12.5 mg 15:50: mouth in [place] capsule 37 the Medical morning. Branch Indication s: takes a tablet, @ 12.5 mg hydroCHLORO 2023-0 Yes 12.5mg Take 12.5 Univers thiazide 1-17 mg by ity of (MICROZIDE) 15:50: mouth in [place] 12.5 mg 37 the Medical capsule morning. Branch hydroCHLORO 2023-0 Yes 12.5mg Take 12.5 Univers thiazide 1-17 mg by ity of 12.5 mg 15:50: mouth in [place] capsule 37 the Medical morning. Branch Indication s: takes a tablet, @ 12.5 mg hydroCHLORO 2023-0 Yes 12.5mg Take 12.5 Univers thiazide 1-17 mg by ity of (MICROZIDE) 15:50: mouth in [place] 12.5 mg 37 the Medical capsule morning. Branch hydroCHLORO 2023-0 Yes 12.5mg Take 12.5 Univers thiazide 1-17 mg by ity of 12.5 mg 15:50: mouth in [place] capsule 37 the Medical morning. Branch Indication s: takes a tablet, @ 12.5 mg hydroCHLORO 2023-0 Yes 12.5mg Take 12.5 Univers thiazide 1-17 mg by ity of (MICROZIDE) 15:50: mouth in [place] 12.5 mg 37 the Medical capsule morning. Branch hydroCHLORO 2023-0 Yes 12.5mg Take 12.5 Univers thiazide 1-17 mg by ity of 12.5 mg 15:50: mouth in [place] capsule 37 the Medical morning. Branch Indication s: takes a tablet, @ 12.5 mg hydroCHLORO 2023-0 Yes 12.5mg Take 12.5 Univers thiazide 1-17 mg by ity of (MICROZIDE) 15:50: mouth in [place] 12.5 mg 37 the Medical capsule morning. Branch hydroCHLORO 2023-0 Yes 12.5mg Take 12.5 Univers thiazide 1-17 mg by ity of 12.5 mg 15:50: mouth in [place] capsule 37 the Medical morning. Branch Indication s: takes a tablet, @ 12.5 mg hydroCHLORO 2023-0 Yes 12.5mg Take 12.5 Univers thiazide 1-17 mg by ity of (MICROZIDE) 15:50: mouth in [place] 12.5 mg 37 the Medical capsule morning. Branch losartan-hy 2022-0 Yes 1{tbl} Take 1 Un susy drochloroth 1-17 tablet by ity of iazide 15:49: mouth [place] 50-12.5 mg 29 daily. Medical per tablet Branch ASPIRIN LOW 2022-0 Yes Take by Uni vers DOSE ORAL 1-17 mouth. ity of 15:49: [place] 29 Medical Branch montelukast 2022-0 Yes 10mg Take 10 mg Univers 10 mg 1-17 by mouth ity of tablet 15:49: in the [place] 29 morning. Medical Branch amLODIPine 2022-0 Yes 5mg Take 5 mg Un susy 5 mg tablet 1-17 by mouth ity of 15:49: in the [place] 29 morning. Medical Branch losartan 50 2022-0 Yes 50mg Take 50 mg Univers mg tablet 1-17 by mouth ity of 15:49: in the [place] 29 morning. Medical Indication Branch s: taking separately , x ~2-3 yrs ago; due to potential cancer losartan-hy 2022-0 Yes 1{tbl} Take 1 Un susy drochloroth 1-17 tablet by ity of iazide 15:49: mouth [place] 50-12.5 mg 29 daily. Medical per tablet Branch ASPIRIN LOW Yes Take by Uni vers DOSE ORAL 1-17 mouth. ity of 15:49: [place] [address] Medical Branch montelukast Yes 10mg Take 10 mg Univers 10 mg 1-17 by mouth ity of tablet 15:49: in the [place] 29 morning. Medical Branch amLODIPine 2022-0 Yes 5mg Take 5 mg Un susy 5 mg tablet 1-17 by mouth ity of 15:49: in the [place] 29 morning. Medical Branch losartan 50 0 Yes 50mg Take 50 mg Univers mg tablet 1-17 by mouth ity of 15:49: in the [place] [address] morning. Medical Indication Branch s: taking separately , x ~2-3 yrs ago; due to potential cancer losartan-hy Yes 1{tbl} Take 1 Un susy drochloroth 1-17 tablet by ity of iazide 15:49: mouth [place] 50-12.5 mg 29 daily. Medical per tablet Branch ASPIRIN LOW Yes Take by Uni vers DOSE ORAL 1-17 mouth. ity of 15:49: [place] [address] Medical Branch montelukast Yes 10mg Take 10 mg Univers 10 mg 1-17 by mouth ity of tablet 15:49: in the [place] [address] morning. Medical Branch amLODIPine 0 Yes 5mg Take 5 mg Un susy 5 mg tablet 1-17 by mouth ity of 15:49: in the [place] [address] morning. Medical Branch losartan 50 0 Yes 50mg Take 50 mg Univers mg tablet 1-17 by mouth ity of 15:49: in the [place] 29 morning. Medical Indication Branch s: taking separately , x ~2-3 yrs ago; due to potential cancer losartan-hy 2022-0 Yes 1{tbl} Take 1 Un susy drochloroth 1-17 tablet by ity of iazide 15:49: mouth [place] 50-12.5 mg 29 daily. Medical per tablet Branch ASPIRIN LOW Yes Take by Uni vers DOSE ORAL 1-17 mouth. ity of 15:49: [place] [address] Medical Branch montelukast 2023-0 Yes 10mg Take 10 mg Univers 10 mg 1-17 by mouth ity of tablet 15:49: in the [place] 29 morning. Medical Branch amLODIPine 2022-0 Yes 5mg Take 5 mg Un susy 5 mg tablet 1-17 by mouth ity of 15:49: in the [place] 29 morning. Medical Branch losartan 50 2022-0 Yes 50mg Take 50 mg Univers mg tablet 1-17 by mouth ity of 15:49: in the [place] 29 morning. Medical Indication Branch s: taking separately , x ~2-3 yrs ago; due to potential cancer losartan-hy 2022-0 Yes 1{tbl} Take 1 Un susy drochloroth 1-17 tablet by ity of iazide 15:49: mouth [place] 50-12.5 mg 29 daily. Medical per tablet Branch ASPIRIN LOW 0 Yes Take by Uni vers DOSE ORAL 1-17 mouth. ity of 15:49: Medical Branch montelukast 2022-0 Yes 10mg Take 10 mg Univers 10 mg 1-17 by mouth ity of tablet 15:49: in the [place] 29 morning. Medical Branch amLODIPine 2022-0 Yes 5mg Take 5 mg Un susy 5 mg tablet 1-17 by mouth ity of 15:49: in the [place] 29 morning. Medical Branch losartan 50 2022-0 Yes 50mg Take 50 mg Univers mg tablet 1-17 by mouth ity of 15:49: in the [place] 29 morning. Medical Indication Branch s: taking separately , x ~2-3 yrs ago; due to potential cancer losartan-hy 2022-0 Yes 1{tbl} Take 1 Un susy drochloroth 1-17 tablet by ity of iazide 15:49: mouth [place] 50-12.5 mg 29 daily. Medical per tablet Branch ASPIRIN LOW 2022-0 Yes Take by Uni vers DOSE ORAL 1-17 mouth. ity of 15:49: Medical Branch montelukast 2022-0 Yes 10mg Take 10 mg Univers 10 mg 1-17 by mouth ity of tablet 15:49: in the [place] 29 morning. Medical Branch amLODIPine 2022-0 Yes 5mg Take 5 mg Un susy 5 mg tablet 1-17 by mouth ity of 15:49: in the [place] 29 morning. Medical Branch losartan 50 2022-0 Yes 50mg Take 50 mg Univers mg tablet 1-17 by mouth ity of 15:49: in the [place] 29 morning. Medical Indication Branch s: taking separately , x ~2-3 yrs ago; due to potential cancer losartan-hy Yes 1{tbl} Take 1 Un susy drochloroth 1-17 tablet by ity of iazide 15:49: mouth [place] 50-12.5 mg 29 daily. Medical per tablet Branch ASPIRIN LOW Yes Take by Uni vers DOSE ORAL 1-17 mouth. ity of 15:49: [place] 29 Medical Branch montelukast Yes 10mg Take 10 mg Univers 10 mg 1-17 by mouth ity of tablet 15:49: in the [place] 29 morning. Medical Branch amLODIPine Yes 5mg Take 5 mg Un susy 5 mg tablet 1-17 by mouth ity of 15:49: in the [place] 29 morning. Medical Branch losartan 50 Yes 50mg Take 50 mg Univers mg tablet 1-17 by mouth ity of 15:49: in the [place] 29 morning. Medical Indication Branch s: taking separately , x ~2-3 yrs ago; due to potential cancer amLODIPine 2021-07 Yes 5mg Take 5 mg Un susy 5 mg tablet 2-12 by mouth ity of 10:38: in the [place] [address] morning. Medical Branch amLODIPine 2021-07 Yes 5mg Take 5 mg Un susy 5 mg tablet 2-12 by mouth ity of 10:38: in the [place] [address] morning. Medical Branch amLODIPine 2021-07 Yes 5mg Take 5 mg Un susy 5 mg tablet 2-12 by mouth ity of 10:38: in the [place] [address] morning. Medical Branch amLODIPine 2021-07 Yes 5mg Take 5 mg Un susy 5 mg tablet 2-12 by mouth ity of 10:38: in the [place] 58 morning. Medical Branch amLODIPine 2021-07 Yes 5mg Take 5 mg Un susy 5 mg tablet 2-12 by mouth ity of 10:38: in the [place] [address] morning. Medical Branch amLODIPine 2021-07 Yes 5mg Take 5 mg Un susy 5 mg tablet 2-12 by mouth ity of 10:38: in the [place] 58 morning. Medical Branch montelukast 2021-07 Yes 10mg Take 10 mg Univers 10 mg 2-12 by mouth ity of tablet 10:37: in the [place] 39 morning. [facility] Branch montelukast 2021-07 Yes 10mg Take 10 mg Univers 10 mg 2-12 by mouth ity of tablet 10:37: in the [place] 39 morning. [facility] Branch montelukast 2021-07 Yes 10mg Take 10 mg Univers 10 mg 2-12 by mouth ity of tablet 10:37: in the [place] 39 morning. [facility] Branch montelukast 2021-07 Yes 10mg Take 10 mg Univers 10 mg 2-12 by mouth ity of tablet 10:37: in the [place] 39 morning. [facility] Branch montelukast 2021-07 Yes 10mg Take 10 mg Univers 10 mg 2-12 by mouth ity of tablet 10:37: in the [place] 39 morning. [facility] montelukast 2021-07 Yes 10mg Take 10 mg Univers 10 mg 2-12 by mouth ity of tablet 10:37: in the [place] [address] morning. [facility] Branch chlorhexidi 2020- No [id number] 15mL Use 15 mL [facility] ne 03-02 in the Health (Peridex) 00:00: 04:59 mouth or 0.12 % 00 :00 throat if solution needed for wound care for up to 14 days. chlorhexidi 2020- No [id number] 15mL Use 15 mL UT ne 03-02 in the Health (Peridex) 00:00: 04:59 mouth or 0.12 % 00 :00 throat if solution needed for wound care for up to 14 days. simvastatin Yes 40mg QD Take 40 mg [facility] (Zocor) 40 -06 by mouth 1 Hea lth MG tablet 13:54: (one) time 29 each day. tiotropium Yes 1{capsu QD Place 1 U T (Spiriva) 02-09 le} capsule Health 18 MCG 13:54: into inhalation 29 inhaler capsule and inhale 1 (one) time each day. aspirin 81 Yes 81mg QD Take 81 mg U T MG EC 8-06 by mouth 1 Health tablet 13:54: (one) time 29 each day. simvastatin Yes 40mg QD Take 40 mg UT (Zocor) 40 8-06 by mouth 1 Hea lth MG tablet 13:54: (one) time 29 each day. tiotropium 2020-0 Yes 1{capsu QD Place 1 U T (Spiriva) 8-06 le} capsule Health 18 MCG 13:54: into inhalation 29 inhaler capsule and inhale 1 (one) time each day. aspirin 81 2020-0 Yes 81mg QD Take 81 mg U T MG EC 8-06 by mouth 1 Health tablet 13:54: (one) time 29 each day. simvastatin 2020-0 Yes 40mg QD Take 40 mg UT (Zocor) 40 8-06 by mouth 1 Hea lth MG tablet 13:54: (one) time 29 each day. tiotropium 2020-0 Yes 1{capsu QD Place 1 U T (Spiriva) 8-06 le} capsule Health 18 MCG 13:54: into inhalation 29 inhaler capsule and inhale 1 (one) time each day. aspirin 81 0 Yes 81mg QD Take 81 mg U T MG EC 8-06 by mouth 1 Health tablet 13:54: (one) time 29 each day. simvastatin 2020-0 Yes 40mg QD Take 40 mg UT (Zocor) 40 8-06 by mouth 1 Hea lth MG tablet 08:54: (one) time 29 each day. tiotropium 0 Yes 1{capsu QD Place 1 U T (Spiriva) 8-06 le} capsule Health 18 MCG 08:54: into inhalation 29 inhaler capsule and inhale 1 (one) time each day. aspirin 81 0 Yes 81mg QD Take 81 mg U T MG EC 8-06 by mouth 1 Health tablet 08:54: (one) time 29 each day. chlorhexidi 2020-0 2020- No [id number] 15mL Use 15 mL UT ne 02-08 in the Health (Peridex) 00:00: 04:59 mouth or 0.12 % 00 :00 throat if solution needed for wound care for up to 14 days. Begin 2 days prior to dental procedure amoxicillin 2020-0 2020- No [id number] 500mg [id number] Take 1 UT (Amoxil) 02-0816 [id number] capsule H ealth 500 MG 00:00: 04:59 3D (500 mg capsule 00 :00 total) by mouth 3 (three) times a day for 10 days. Begin 3 days prior to dental procedure hydroCHLORO 2021-0 Yes 12.5mg QD Take 12.5 UT thiazide 7-21 mg by Health (HYDRODiuri 00:00: mouth 1 l) 12.5 MG 00 (one) time tablet each day. losartan 1-0 Yes 50mg QD Take 50 mg UT (Cozaar) 50 7-21 by mouth 1 He alth MG tablet 00:00: (one) time 00 each day. montelukast 2020-0 Yes 10mg QD Take 10 mg UT (Singulair) 7-21 by mouth 1 He alth 10 MG 00:00: (one) time tablet 00 each day. hydroCHLORO 2020-0 Yes 12.5mg QD Take 12.5 UT thiazide 7-21 mg by Health (HYDRODiuri 00:00: mouth 1 l) 12.5 MG 00 (one) time tablet each day. losartan 2020-0 Yes 50mg QD Take 50 mg UT (Cozaar) 50 7-21 by mouth 1 He alth MG tablet 00:00: (one) time 00 each day. montelukast 2020-0 Yes 10mg QD Take 10 mg UT (Singulair) 7-21 by mouth 1 He alth 10 MG 00:00: (one) time tablet 00 each day. hydroCHLORO 2020-0 Yes 12.5mg QD Take 12.5 UT thiazide 7-21 mg by Health (HYDRODiuri 00:00: mouth 1 l) 12.5 MG 00 (one) time tablet each day. losartan 2020-0 Yes 50mg QD Take 50 mg UT (Cozaar) 50 7-21 by mouth 1 He alth MG tablet 00:00: (one) time 00 each day. montelukast 2020-0 Yes 10mg QD Take 10 mg UT (Singulair) 7-21 by mouth 1 He alth 10 MG 00:00: (one) time tablet 00 each day. hydroCHLORO 1-0 Yes 12.5mg QD Take 12.5 UT thiazide 7-21 mg by Health (HYDRODiuri 00:00: mouth 1 l) 12.5 MG 00 (one) time tablet each day. losartan 1-0 Yes 50mg QD Take 50 mg UT (Cozaar) 50 7-21 by mouth 1 He alth MG tablet 00:00: (one) time 00 each day. montelukast Yes 10mg QD Take 10 mg UT (Singulair) 7-21 by mouth 1 He alth 10 MG 00:00: (one) time tablet 00 each day. Breo Yes 1{puff} QD Use 1 puff UT Ellipta 6-14 in the [facility] 200-25 00:00: mouth or MCG/INH 00 throat 1 inhaler (one) time each day. Breo Yes 1{puff} QD Use 1 puff [facility] Ellipta 6-14 in the [facility] 200-25 00:00: mouth or MCG/INH 00 throat 1 inhaler (one) time each day. Breo Yes 1{puff} QD Use 1 puff UT Ellipta 6-14 in the [facility] 200-25 00:00: mouth or MCG/INH 00 throat 1 inhaler (one) time each day. Breo Yes 1{puff} QD Use 1 puff UT Ellipta 6-14 in the [facility] 200-25 00:00: mouth or MCG/INH 00 throat 1 inhaler (one) time each day. albuterol 2019-07 Yes [facility] 108 ( 1-10 [facility] Base) 00:00: MCG/ACT 00 inhaler albuterol 2019-07 Yes [facility] 108 ( 1-10 Health Base) 00:00: MCG/ACT 00 inhaler albuterol 2019-07 Yes [facility] 108 ( 1-10 Health Base) 00:00: MCG/ACT 00 inhaler albuterol 2019- Yes [facility] 108 ( 1-10 Health Base) 00:00: MCG/ACT 00 inhaler losartan-hy 2017-07 Yes 1{tbl} QD Take 1 Me thodi drochloroth 0-[address] iazide 15:28: mouth Hospita (HYZAAR) 06 daily. l 50-12.5 mg per tablet tiotropium 2017-07 Yes 1{capsu QD Place 1 M ethodi (SPIRIVA) 0-11 le} capsule st 18 mcg per 15:28: into Hospita inhalation 06 inhaler l capsule and inhale once daily. fluticasone 2017-07 Yes QD Inhale 1 Me thodi -vilanterol 0-[address] (BREO 15:28: s once Hospita ELLIPTA) 06 daily. l 100-25 mcg/dose blister with device powder for inhalation simvastatin 2017-07 Yes 40mg QD Take 40 mg [facility] (ZOCOR) 40 0-[address] MG tablet 15:28: nightly. Hosp [facility] 06 l carvedilol 2017-07 Yes 3.125mg Q.5D Take 3.125 [facility] (COREG) 0-[address] 3.125 MG 15:28: mouth 2 Hospit a tablet 06 (two) l times a day with meals. fexofenadin 2017-07 Yes 180mg QD Take 180 M ethodi e (MARYJANE) 0-[address] 180 MG 15:28: mouth Hospita tablet 06 daily. l MULTIVITAMI 2017-07 Yes Take by Met hodi N ORAL 0-[address] 15:28: Hospita 06 l losartan-hy 2017-07 Yes 1{tbl} QD Take 1 Me thodi drochloroth 0-[address] iazide 10:28: mouth Hospita (HYZAAR) 06 daily. l 50-12.5 mg per tablet tiotropium 2017-07 Yes 1{capsu QD Place 1 M ethodi (SPIRIVA) 0-11 le} capsule st 18 mcg per 10:28: into Hospita inhalation 06 inhaler l capsule and inhale once daily. fluticasone 2017-07 Yes QD Inhale 1 Me thodi -vilanterol 0-[address] (BREO 10:28: s once Hospita ELLIPTA) 06 daily. l 100-25 mcg/dose blister with device powder for inhalation simvastatin 2017-07 Yes 40mg QD Take 40 mg [facility] (ZOCOR) 40 0-[address] MG tablet 10:28: nightly. Hosp ariana 06 l carvedilol 2017-07 Yes 3.125mg Q.5D Take 3.125 Methodi (COREG) 0-[address] 3.125 MG 10:28: mouth 2 Hospit a tablet 06 (two) l times a day with meals. fexofenadin 2017-07 Yes 180mg QD Take 180 M ethodi e (MARYJANE) 0-[address] 180 MG 10:28: mouth Hospita tablet 06 daily. l MULTIVITAMI 2017-07 Yes Take by Met hodi N ORAL 0-[address] 10:28: Hospita 06 l PROAIR HFA 2016-0 Yes every 4 Univ ers 90 8-29 (four) ity of mcg/actuati 00:00: [place] on inhaler 00 needed. Medica l Branch PROAIR HFA 2016-0 Yes every 4 Univ ers 90 8-29 (four) ity of mcg/actuati 00:00: hours [place] on inhaler 00 needed. Medica l Branch PROAIR HFA 2016-0 Yes every 4 Univ ers 90 8-29 (four) ity of mcg/actuati 00:00: hours [place] on inhaler 00 needed. Medica l Branch PROAIR HFA 2015-0 Yes every 4 Univ ers 90 8-29 (four) ity of mcg/actuati 00:00: hours as [place] on inhaler 00 needed. Medica l Branch PROAIR HFA 2015-0 Yes every 4 Univ ers 90 8-29 (four) ity of mcg/actuati 00:00: hours as [place] on inhaler 00 needed. Medica l Branch PROAIR HFA 2015-0 Yes every 4 Univ ers 90 8-29 (four) ity of mcg/actuati 00:00: hours as [place] on inhaler 00 needed. Medica l Branch PROAIR HFA 2015-0 Yes every 4 Univ ers 90 8-29 (four) ity of mcg/actuati 00:00: hours as [place] on inhaler 00 needed. Medica l Branch PROAIR HFA 2015-0 Yes [facility] 90 8-29 ity of mcg/actuati 00:00: [place] on inhaler 00 Medical Branch PROAIR HFA 2016-0 Yes every 4 Univ ers 90 8-29 (four) ity of mcg/actuati 00:00: hours as [place] on inhaler 00 needed. Medica l Branch PROAIR HFA 2016-0 Yes every 4 Univ ers 90 8-29 (four) ity of mcg/actuati 00:00: hours as [place] on inhaler 00 needed. Medica l Branch PROAIR HFA 2016-0 Yes every 4 Univ ers 90 8-29 (four) ity of mcg/actuati 00:00: hours as [place] on inhaler 00 needed. Medica l Branch PROAIR HFA 2015-0 Yes [facility] 90 8-29 ity of mcg/actuati 00:00: [place] on inhaler 00 Medical Branch PROAIR HFA 2016-0 Yes every 4 Univ ers 90 8-29 (four) ity of mcg/actuati 00:00: hours as [place] on inhaler 00 needed. Medica l Branch PROAIR HFA 2016-0 Yes every 4 Univ ers 90 8-29 (four) ity of mcg/actuati 00:00: hours as [place] on inhaler 00 needed. Medica l Branch PROAIR HFA 2016-0 Yes every 4 Univ ers 90 8-29 (four) ity of mcg/actuati 00:00: hours as [place] on inhaler 00 needed. Medica l Branch losartan-hy Yes 1{tbl} Take 1 Un susy drochloroth 7-19 tablet by ity of iazide 10:03: mouth [place] (HYZAAR) 34 daily. Medical 50-12.5 mg Branch per tablet ASPIRIN LOW Yes Take by Uni vers DOSE ORAL 7-19 mouth. ity of 10:03: [place] [address] Medical Branch losartan-hy Yes 1{tbl} Take 1 Un susy drochloroth 7-19 tablet by ity of iazide 10:03: mouth [place] (HYZAAR) 34 daily. Medical 50-12.5 mg Branch per tablet ASPIRIN LOW Yes Take by Uni vers DOSE ORAL 7-19 mouth. ity of 10:03: [place] [address] Medical Branch losartan-hy Yes 1{tbl} Take 1 Un susy drochloroth 7-19 tablet by ity of iazide 10:03: mouth [place] (HYZAAR) 34 daily. Medical 50-12.5 mg Branch per tablet ASPIRIN LOW Yes Take by Uni vers DOSE ORAL 7-19 mouth. ity of 10:03: [place] [address] Medical Branch losartan-hy Yes 1{tbl} Take 1 Un susy drochloroth 7-19 tablet by ity of iazide 10:03: mouth [place] (HYZAAR) 34 daily. Medical 50-12.5 mg Branch per tablet ASPIRIN LOW Yes Take by Uni vers DOSE ORAL 7-19 mouth. ity of 10:03: [place] [address] Medical Branch losartan-hy Yes 1{tbl} Take 1 Un susy drochloroth 7-19 tablet by ity of iazide 10:03: mouth [place] (HYZAAR) 34 daily. Medical 50-12.5 mg Branch per tablet ASPIRIN LOW Yes Take by Uni vers DOSE ORAL 7-19 mouth. ity of 10:03: [address] Branch losartan-hy Yes 1{tbl} Take 1 Un susy drochloroth 7-19 tablet by ity of iazide 10:03: mouth [place] (HYZAAR) 34 daily. Medical 50-12.5 mg Branch per tablet ASPIRIN LOW Yes Take by Uni vers DOSE ORAL 7-19 mouth. ity of 10:03: [address] Branch losartan-hy Yes 1{tbl} Take 1 Un susy drochloroth 7-19 tablet by ity of iazide 10:03: mouth [place] (HYZAAR) 34 daily. Medical 50-12.5 mg Branch per tablet ASPIRIN LOW Yes Take by Uni vers DOSE ORAL 7-19 mouth. ity of 10:03: [address] Branch losartan-hy Yes 1{tbl} Take 1 Un susy drochloroth 7-19 tablet by ity of iazide 10:03: mouth [place] (HYZAAR) 34 daily. Medical 50-12.5 mg Branch per tablet ASPIRIN LOW Yes Take by Uni vers DOSE ORAL 7-19 mouth. ity of 10:03: [address] Branch raloxifene Yes Univers (EVISTA) 60 7-14 ity of mg tablet 00:00: [place] 00 Medical Branch raloxifene Yes Univers (EVISTA) 60 7-14 ity of mg tablet 00:00: [place] 00 Medical Branch raloxifene 2016-0 2021- No Univer s (EVISTA) 60 7-14 12-12 ity of mg tablet 00:00: 00:00 [place] 00 :00 Medical Branch raloxifene 2016-0 2021- No Univer s (EVISTA) 60 7-14 12-12 ity of mg tablet 00:00: 00:00 [place] 00 :00 Medical Branch SPIRIVA 2016-0 Yes daily. Univers WITH 7-12 ity of HANDIHALER 00:00: [place] 18 mcg 00 Medical inhalation Branch device SPIRIVA 2016-0 Yes daily. Univers WITH 7-12 ity of HANDIHALER 00:00: [place] 18 mcg 00 Medical inhalation Branch device SPIRIVA 2016-0 Yes daily. Univers WITH 7-12 ity of HANDIHALER 00:00: [place] 18 mcg 00 Medical inhalation Branch device SPIRIVA 2016-0 Yes Univers WITH 7-12 ity of HANDIHALER 00:00: [place] 18 mcg 00 Medical inhalation Branch device SPIRIVA 2016-0 Yes daily. Univers WITH 7-12 ity of HANDIHALER 00:00: [place] 18 mcg 00 Medical inhalation Branch device SPIRIVA 2016-0 Yes daily. Univers WITH 7-12 ity of HANDIHALER 00:00: [place] 18 mcg 00 Medical inhalation Branch device SPIRIVA 2016-0 Yes daily. Univers WITH 7-12 ity of HANDIHALER 00:00: [place] 18 mcg 00 Medical inhalation Branch device SPIRIVA 2016-0 Yes daily. Univers WITH 7-12 ity of HANDIHALER 00:00: [place] 18 mcg 00 Medical inhalation Branch device SPIRIVA 2016-0 Yes daily. Univers WITH 7-12 ity of HANDIHALER 00:00: [place] 18 mcg 00 Medical inhalation Branch device SPIRIVA 2016-0 Yes daily. Univers WITH 7-12 ity of HANDIHALER 00:00: [place] 18 mcg 00 Medical inhalation Branch device SPIRIVA 2016-0 Yes Univers WITH 7-12 ity of HANDIHALER 00:00: [place] 18 mcg 00 Medical inhalation Branch device SPIRIVA 2016-0 Yes daily. Univers WITH 7-12 ity of HANDIHALER 00:00: [place] 18 mcg 00 Medical inhalation Branch device SPIRIVA 2016-0 Yes daily. Univers WITH 7-12 ity of HANDIHALER 00:00: [place] 18 mcg 00 Medical inhalation Branch device SPIRIVA 2016-0 Yes daily. Univers WITH 7-12 ity of HANDIHALER 00:00: [place] 18 mcg 00 Medical inhalation Branch device SPIRIVA 2016-0 Yes daily. Univers WITH 7-12 ity of HANDIHALER 00:00: [place] 18 mcg 00 Medical inhalation Branch device simvastatin 2016-0 Yes Take by Uni vers 40 mg 6-28 mouth at ity of tablet 00:00: bedtime. [place] [facility] simvastatin 2016-0 Yes Take by Uni vers 40 mg 6-28 mouth at ity of tablet 00:00: bedtime. [place] [facility] simvastatin 2016-0 Yes Take by Uni vers 40 mg 6-28 mouth at ity of tablet 00:00: bedtime. [place] [facility] simvastatin 2016-0 Yes Univer s (ZOCOR) 20 6-28 ity of mg tablet 00:00: [place] [facility] simvastatin 2016-0 Yes Take by Uni vers 40 mg 6-28 mouth at ity of tablet 00:00: bedtime. [place] [facility] simvastatin 2015-0 Yes Take by Uni vers 40 mg 6-28 mouth at ity of tablet 00:00: bedtime. [place] [facility] simvastatin 2015-0 Yes Take by Uni vers 40 mg 6-28 mouth at ity of tablet 00:00: bedtime. [place] [facility] simvastatin 2015-0 Yes Take by Uni vers 40 mg 6-28 mouth at ity of tablet 00:00: bedtime. [place] [facility] simvastatin 2015-0 Yes Take by Uni vers 40 mg 6-28 mouth at ity of tablet 00:00: bedtime. [place] [facility] simvastatin 2015-0 Yes Take by Uni vers 40 mg 6-28 mouth at ity of tablet 00:00: bedtime. [place] [facility] simvastatin 2015-0 Yes Univer s (ZOCOR) 20 6-28 ity of mg tablet 00:00: [place] [facility] simvastatin 2015-0 Yes Take by Uni vers 40 mg 6-28 mouth at ity of tablet 00:00: bedtime. [place] [facility] simvastatin 2016-0 Yes Take by Uni vers 40 mg 6-28 mouth at ity of tablet 00:00: bedtime. [place] [facility] simvastatin 2015-0 Yes Take by Uni vers 40 mg 6-28 mouth at ity of tablet 00:00: bedtime. [place] [facility] simvastatin 2016-0 Yes Take by Uni vers 40 mg 6-28 mouth at ity of tablet 00:00: bedtime. [place] [facility] FLUTICASONE 2016-0 Yes daily. Univ ers FUROATE-SONIA 6-21 BREO ity of ANTEROL 00:00: [place] 200-25 00 Medical mcg/dose Branch DsDv FLUTICASONE 2016-0 Yes daily. Univ ers FUROATE-SONIA 6-21 BREO ity of ANTEROL 00:00: [place] 200-25 00 Medical mcg/dose Branch DsDv FLUTICASONE 2016-0 Yes daily. Univ ers FUROATE-SONIA 6-21 BREO ity of ANTEROL 00:00: [place] 200-25 00 Medical mcg/dose Branch DsDv FLUTICASONE 2016-0 Yes daily. [facility] ers FUROATE-SONIA 6-21 BREO ity of ANTEROL 00:00: [place] 200-25 00 Medical mcg/dose Branch DsDv FLUTICASONE 2016-0 Yes daily. [facility] ers FUROATE-SONIA 6-21 BREO ity of ANTEROL 00:00: [place] 200-25 00 Medical mcg/dose Branch DsDv FLUTICASONE 2016-0 Yes daily. [facility] ers FUROATE-SONIA 6-21 BREO ity of ANTEROL 00:00: [place] 200-25 00 Medical mcg/dose Branch DsDv BREO 2016-0 Yes USE 1 PUFF Univers ELLIPTA 6-21 PO QD ity of 100-25 00:00: [place] mcg/dose 00 Medical DsDv Branch FLUTICASONE 2016-0 Yes daily. [facility] ers FUROATE-SONIA 6-21 BREO ity of ANTEROL 00:00: [place] 200-25 00 Medical mcg/dose Branch DsDv FLUTICASONE 2016-0 Yes daily. [facility] ers FUROATE-SONIA 6-21 BREO ity of ANTEROL 00:00: [place] 200-25 00 Medical mcg/dose Branch DsDv FLUTICASONE 2016-0 Yes daily. [facility] ers FUROATE-SONIA 6-21 BREO ity of ANTEROL 00:00: [place] 200-25 00 Medical mcg/dose Branch DsDv FLUTICASONE 2016-0 Yes daily. [facility] ers FUROATE-SONIA 6-21 BREO ity of ANTEROL 00:00: [place] 200-25 00 Medical mcg/dose Branch DsDv BREO 2016-0 Yes USE 1 PUFF Univers ELLIPTA 6-21 PO QD ity of 100-25 00:00: [place] mcg/dose 00 Medical DsDv Branch FLUTICASONE 2016-0 Yes daily. [facility] ers FUROATE-SONIA 6-21 BREO ity of ANTEROL 00:00: [place] 200-25 00 Medical mcg/dose Branch DsDv FLUTICASONE 2016-0 Yes daily. [facility] ers FUROATE-SONIA 6-21 BREO ity of ANTEROL 00:00: [place] 200-25 00 Medical mcg/dose Branch DsDv FLUTICASONE 2016-0 Yes daily. [facility] ers FUROATE-SONIA 6-21 BREO ity of ANTEROL 00:00: [place] 200-25 00 Medical mcg/dose Branch DsDv predniSONE 2016-0 Yes daily. Unive rs 5 mg tablet 6-14 ity of 00:00: [place] 00 Medical Branch predniSONE 2016-0 Yes daily. Unive rs 5 mg tablet 6-14 ity of 00:00: [place] 00 Medical Branch predniSONE 2016-0 Yes daily. Unive rs 5 mg tablet 6-14 ity of 00:00: [place] 00 Medical Branch predniSONE 2016-0 Yes daily. Unive rs 5 mg tablet 6-14 ity of 00:00: [place] 00 Medical Branch predniSONE 2016-0 Yes TK 1 T PO Un susy (DELTASONE) 6-14 QD ity of 10 mg 00:00: [place] tablet 00 Medical Branch predniSONE 2016-0 Yes daily. Unive rs 5 mg tablet 6-14 ity of 00:00: [place] 00 Medical Branch predniSONE 2016-0 Yes daily. Unive rs 5 mg tablet 6-14 ity of 00:00: [place] 00 Medical Branch predniSONE 2016-0 Yes daily. Unive rs 5 mg tablet 6-14 ity of 00:00: [place] 00 Medical Branch predniSONE 2016-0 Yes daily. Unive rs 5 mg tablet 6-14 ity of 00:00: [place] 00 Medical Branch predniSONE 2016-0 Yes daily. Unive rs 5 mg tablet 6-14 ity of 00:00: [place] 00 Medical Branch predniSONE 2016-0 Yes TK 1 T PO Un susy (DELTASONE) 6-14 QD ity of 10 mg 00:00: [place] tablet 00 Medical Branch predniSONE 2016-0 Yes daily. Unive rs 5 mg tablet 6-14 ity of 00:00: [place] 00 Medical Branch predniSONE 2016-0 Yes daily. Unive rs 5 mg tablet 6-14 ity of 00:00: [place] 00 Medical Branch predniSONE 2016-0 Yes daily. Unive rs 5 mg tablet 6-14 ity of 00:00: [place] 00 Medical Branch predniSONE 2016-0 Yes daily. Unive rs 5 mg tablet 6-14 ity of 00:00: [place] 00 Medical Branch Immunizations Ordered Filled Immunization Date Status Comments [facility] e Immunization Name Name Influenza Virus 2022-06-17 Completed Universit y of Vaccine,quad 00:00:00 [place] [facility] Free [place] 65+ Influenza Virus 2022-06-17 Completed Universit y of Vaccine,quad 00:00:00 [place] [facility] Branch 65+ Influenza Virus 2022-06-17 Completed Universit y of Vaccine,quad 00:00:00 [place] [facility] Free Branch 65+ Influenza Virus 2022-06-17 Completed Universit y of Vaccine,quad 00:00:00 [place] [facility] Free Branch 65+ Influenza Virus 2022-06-17 Completed Universit y of Vaccine,quad 00:00:00 [place] [facility] Free Branch 65+ Influenza Virus 2022-06-17 Completed Universit y of Vaccine,quad 00:00:00 [place] [facility] Free Branch 65+ Influenza Virus 2022-06-17 Completed Universit y of Vaccine,quad 00:00:00 [place] [facility] Im,[facility] Free Branch 65+ Influenza Virus 2022-06-17 Completed Universit y of Vaccine,quad 00:00:00 [place] [facility] Free Branch 65+ Influenza Virus 2022-06-17 Completed Universit y of Vaccine,quad 00:00:00 [place] [facility] Im,[facility] Free Branch 65+ Influenza Virus 2022-06-17 Completed Universit y of Vaccine,quad 00:00:00 [place] [facility] Im,[facility] Free Branch 65+ Influenza Virus 2022-06-17 Completed Universit y of Vaccine,quad 00:00:00 [place] [facility] Im,preserve Free Branch 65+ Influenza Virus 2022-06-17 Completed Universit y of Vaccine,quad 00:00:00 [place] [facility] Im,[facility] Free Branch 65+ Influenza Virus 2022-06-17 Completed Universit y of Vaccine,quad 00:00:00 [place] Medica [facility] Im,preserve Free Branch 65+ Vital Signs Vital Name Observation Time Observation Value Comments Source Systolic blood 2022-07-23 116 mm[Hg] manual; 124/70 University of pressure 21:00:00 right side, [place] Medical manual Branch Diastolic blood 2022-07-23 68 mm[Hg] manual; 124/70 University of pressure 21:00:00 right side, [place] Medical manual Branch Heart rate 2022-07-23 73 /min University of 21:00:00 [facility] Respiratory rate 2022-07-23 22 /min [facility] 21:00:00 [facility] Body weight 2022-07-23 74.299 kg University of 21:00:00 [facility] BMI 2022-07-23 29.96 kg/m2 University of 21:00:00 [facility] Oxygen saturation 2022-07-23 97 /min arrived on RA; [facility] in Arterial blood 21:00:00 [facility] one dip <90% Branch SpO2, increasing after ~30 second rest Systolic blood 2022-06-17 109 mm[Hg] University of pressure 16:34:00 [facility] Diastolic blood 2022-06-17 79 mm[Hg] [place] o f pressure 16:34:00 [facility] Heart rate 2022-06-17 84 /min University 16:34:00 [facility] Respiratory rate 2022-06-17 19 /min University 16:32:00 [facility] Body height 2022-06-17 157.5 cm University 16:32:00 [facility] Body weight 2022-06-17 72.576 kg University 16:32:00 [facility] BMI 2022-06-17 29.26 kg/m2 University 16:32:00 [facility] Oxygen saturation 2022-06-17 94 /min [facility] in Arterial blood 16:32:00 [facility] by Pulse oximetry Branch Systolic blood 2021-03-30 144 mm[Hg] [facility] pressure 16:10:00 Diastolic blood 2021-03-30 102 mm[Hg] [facility] pressure 16:10:00 Heart rate 2021-03-30 90 /min [facility] 16:10:00 Body temperature 2021-03-30 36.06 Kim [facility] 16:10:00 Systolic blood 2021-03-02 158 mm[Hg] [facility] pressure 14:05:00 Diastolic blood 2021-03-02 100 mm[Hg] [facility] pressure 14:05:00 Heart rate 2021-03-02 90 /min [facility] 14:05:00 Body temperature 2021-03-02 36.94 Kim [facility] 14:05:00 Systolic blood 2021-02-08 126 mm[Hg] [facility] pressure 20:19:00 Diastolic blood 2021-02-08 87 mm[Hg] [facility] pressure 20:19:00 Heart rate 2021-02-08 92 /min [facility] 20:19:00 Body temperature 2021-02-08 36.67 Kim [facility] 20:19:00 Procedures Procedure Date / Time Performed Performing Clinician Sour e CONSENT/REFUSAL FOR 2022-07-23 06:01:00 [facility] Branch TREATMENT FLU 2022-06-17 16:40:34 [facility] [place] [facility] [place] VACC(),65+YR, Medical [place] 0.5 ML,IM,ADJUVANTED,QUAD( FLUAD) ASSIGNMENT OF BENEFITS 2022-06-17 16:17:18 Doctor Unassigned, No [facility] Name Medical Branch CULTURE, AEROBIC AND 2021-03-02 14:56:00 Adi Blackman [facility] ANAEROBIC W/GRAM STAIN Plan of Care Planned Activity Planned Date Details Comments Source Future Scheduled 2022-06-21 COVID-19 VACCINE (#1) Me [facility] Test 01:08:39 [code = COVID-19 VACCINE (#1)] Future Scheduled 2022-06-21 SHINGLES VACCINES ([address] [facility] Hospital Test 01:08:39 of 2) [code = SHINGLES VACCINES (1 of 2)] Future Scheduled 2022-06-21 65+ [facility]UMOCOCCAL [facility] Test 01:08:39 VACCINE (1 - PCV) [code = 65+ PNEUMOCOCCAL VACCINE (1 - PCV)] Future Scheduled 2022-06-21 INFLUENZA VACCINE [facility] Test 01:08:39 [code = INFLUENZA VACCINE] Future Scheduled 65+ PNEUMOCOCCAL [facility] Test VACCINE (1 of 2 - PPSV23) [code = 65+ PNEUMOCOCCAL VACCINE (1 of 2 - PPSV23)] Future Scheduled COVID-19 VACCINE (1) [facility] Hospital Test [code = COVID-19 VACCINE (1)] Future Scheduled Hepatitis C screening [facility] [place] [facility] Test (procedure) [code = 057303175] Future Scheduled BREAST CANCER [facility] Test SCREENING [code = BREAST CANCER SCREENING] Future Scheduled COLONOSCOPY SCREENING [facility] [place] [facility] Test [code = COLONOSCOPY SCREENING] Future Scheduled SHINGLES VACCINES (#1) [facility] [code = SHINGLES VACCINES (#1)] Future Scheduled INFLUENZA VACCINE [facility] Test [code = INFLUENZA VACCINE] Encounters Start End Encounter Admission Attending Care Care Encounter Source Date/Time Date/Time Type Type Clinicians Facility Department ID 2021-03-30 Outpatient EMILY, [facility] [id number] [place] 11:53:37 [facility] 2021-03-02 Outpatient EMILY, [facility] [id number] [place] 10:00:55 [facility] 2021-03-02 Outpatient EMILY, [facility] [id number] [place] 09:59:50 [facility] 2022-08-01 2022-08-[address] [facility] [id number] Univers 13:00:00 13:00:00 JORGE LUIS aragon [facility] 2022-08-01 2022-08-01 Telephone [facility] [id number] Univers 00:00:00 00:00:00 Patricia C [place] [id number] i ty [place] [id number] [address] 2022-07-30 2022-07-30 [facility] [id number] Univers 00:00:00 00:00:00 Patricia C [place] [id number] i ty [id number] [id number] [address] 2022-07-25 2022-07-25 Telephone [facility] [id number] Univers 00:00:00 00:00:00 Patricia C [place] [id number] i ty [place] [id number] [address] 2022-07-24 2022-07-24 Telephone [facility] [id number] Univers 00:00:00 00:00:00 Patricia C [place] [id number] i [place] [id number] [address] 2022-07-23 2022-07-23 Ancillary Therapist, Adc Pulmonary [facility] [id number] [facility] 15:00:00 16:00:00 Visit Jorge Luis [place] 350.1.13. 10 it[facility] [place].2.[place] [id number] [address] 2022-07-23 2022-07-23 Orders Doctor SHELLY [id number] Univers 00:00:00 00:00:00 Only Unassigned, JOSEPHINE 350.1.13.10 ity of [place] [facility] 4.2.7.2.686 [place] as [id number] [address] 2022-07-19 2022-07-[address] [facility] [id number] Univers 09:30:00 09:30:00 JORGE LUIS itblanca [facility] 2022-07-19 2022-07-19 Telephone [facility] [id number] Univers 00:00:00 00:00:00 Patricia C [place] 350.1.13.10 i ty [facility] 4[place]2.[place].2.[place] [id number] [address] 2022-07-12 2022-07-12 Telephone [facility] [id number] Univers 00:00:00 00:00:00 Patricia C [place] 350.1.13.10 i ty [place] [id number] [address] 2022-07-09 2022-07-09 Telephone [facility] [id number] Univers 00:00:00 00:00:00 Patricia C [place] 350.1.13.10 i ty [place] [id number] [address] 2022-07-08 2022-07-08 [facility] [id number] Univers 00:00:00 00:00:00 Management Tony BETANCOURTTON 350.1.13.10 [place] [id number] Ca dical NAL [address] [place] [address] 2022-06-26 2022-06-[address] [facility] [id number] Univers 11:00:00 11:00:00 JORGE LUIS ity of [facility] 2022-06-17 2022-06-17 Out[address] [facility]ONY RASH[facility] [id number] Univers 10:30:00 11:06:35 TONY RASHID i ty of [facility] 2022-06-17 2022-06-17 Office Gay [facility] [id number] Univers 10:30:00 11:06:35 Visit Tony HOWELL 350.1.13.10 i [place]2.[place] [id number] Ca dical NAL [address] [place] [address] 2022-06-17 2022-06-17 Orders Doctor SHELLY [id number] [id number] Univers 00:00:00 00:00:00 Only Unassigned, JOSEPHINE 350.1.13.10 ity of [place] [facility] 4.2.7.2.686 [place] as [id number] [address] 2022-06-11 2022-06-11 Out[address] [facility] [id number] Univers 10:30:00 10:30:00 TONY RASHID i ty of [facility] 2022-06-11 2022-06-11 Telephone Gay [facility] [id number] Univers 00:00:00 00:00:00 Tony HOWELL 350.1.13.10 i [place]2.[place] [id number] Ca dical NAL [address] [place] [address] 2022-05-13 2022-05-13 Outpatient [address] [facility]Y [facility] [facility] [id number] Univers 11:00:00 11:00:00 TONY RASHID i ty of [facility] 2021-03-30 2021-03-30 Office DEMETRIA Blackman [id number] [place] 10:55:21 11:53:53 Visit Adi ISBELL 350.1.13.58 H [facility]alth [place] 9.2.7.2.686 [id number] 1 2021-03-02 2021-03-02 Office DEMETRIA Blackman [id number] [place] 08:45:49 09:59:22 Visit Adi ISBELL 350.1.13.58 H ealth [place] 9.2.7.2.686 [id number] 1 2021-02-08 2021-02-08 Office DEMETRIA Blackman [id number] [place] 14:58:58 16:31:23 Visit Adi ISBELL 350.1.13.58 H ealth [place] 9.2.7.2.686 [id number] Results Test Description Test Time Test Comments Results Result Comments Source CULTURE, AEROBIC AND ANAEROBIC W/GRAM STAIN 2021-03-08 15:00 :00 Test Item Value Reference Range Interpretation Comme nts CULTURE, AEROBIC AND SEE NOTE ?CULTU RE, ANAEROBIC BACTERIA ANAEROBIC W/GRAM STAIN W/GRA M STAIN ? ?Micro Number: (test code = [id number]) ? ? ?[id number] ?Test Status: ? ? ? Final ?Spec imen Source: ? Mandible left ? Specimen Quality: ?Adequ ate ?Gram Stain: ?M oderate White blood cells see n ? Rare ep ithelial cells ? No organisms seen ?Result: ?A mix of non-predominati ng organisms of ? questionable si gnificance was recovered on ? culture and not further identified. ? (Note: Growth does not include B.fragi lis group ? or C.perfringens.) CULTURE, AEROBIC AND SEE NOTE A ?CULTU RE, AEROBIC BACTERIA ? ANAEROBIC W/GRAM STAIN ?Micr o Number: ? ? ?[id number] (test code = 227533575) ?Alicia t Status: ? ? ? Final ?Specimen Sourc e: ? Mandible left ?Specimen Quality: ?Adequate ?Resu lt: ?Light growth o f Streptococcus v iridans group ? Susceptibility testing not routinely ? performed on th is isolate. ? Light growth of Eiken ronaldo corroeliseos ? Susceptibility testing not routinely ? performed on th is isolate. ? Scant growth of ? Neisseria speci es, not meningitidis or gonorrhoeae ? Susceptibility testing not routinely ? performed on th is isolate. RAC (test code = RAC) Performing Organization Information: ? ?Site ID: [id number] ? ?Name: [facility] ? ?Address: [address] [place] [id number] ? ?Director: SRINATH LEVY MD Lab Interpretation (test Abnormal code = 46947-0) [facility]/GRAM [id number] 15:00:00 Test Item Value Reference Interpretation Comments Range CULTURE, AEROBIC AND SEE NOTE ?CULTU RE, ANAEROBIC W/GRAM ANAEROBIC B ACTERIA STAIN (test code = W/GRAM ST AIN ? [id number]) ?Micro Number: ? ? ?[id number] ?Test Status: ? ? ? F inal ?Specimen Sourc e: ? Mandible left ?Specimen Quali ty: ?Adequate ?Gram Stain: ?Moderate White blood cells see n ? Rare epithelial cells ? No organi sms seen ?Result: ?A mix of non-predominati ng organisms of ? questionable significance wa s recovered on ? culture and not further identif ied. ? (Note: Growth d oes not include B.fragilis grou p ? or C.perfringen s.) CULTURE, AEROBIC AND SEE NOTE A ?CULTU RE, AEROBIC ANAEROBIC W/GRAM BACTERIA ? ?Micro STAIN (test code = Number: ? ? [id number]) ?[id number] ?Test Status: ? ? ? F inal ?Specimen Sourc e: ? Mandible left ?Specimen Quali ty: ?Adequate ?Resu lt: ?Ligh t growth of Streptococcus viridans group ? Susceptibility testing not routinely ? perfo rmed on this isolate . ? Light growth of Eikenella argelia dens ? Susceptibility testing not routinely ? perfo rmed on this isolate . ? Scant growth of ? Neisseria speci es, not meningitidi s or gonorrhoeae ? Susceptibility testing not routinely ? perfo rmed on this isolate . RAC (test code = Performing RAC) Organization Information: ? ?Site ID: [id number] ? ?Name: [facility] ? ?Address: [address] [place] [address] ? ?Director: SRINATH LEVY MD Lab Interpretation Abnormal (test code = 25523-8) [facility]
[2022-08-06] MEDS ORDERED: ONDANSETRON 4 MG/2 ML VIAL ONE (01:21)
[2022-08-06] MEDS ORDERED: FENTANYL CITR 100 MCG/2 ML ONE (01:21)
[2022-08-06] MEDS ORDERED: NA CHLORIDE 0.9% 1,000 ML ONE (01:21)
[2022-08-06] MEDS ORDERED: FAMOTIDINE 20 MG/2 ML VIAL IV ONE (01:21)
[2022-08-06] MEDS ORDERED: LEVALBUTEROL 1.25 MG/3 ML NEB ONE (01:59)
[2022-08-06] MEDS ORDERED: IPRATROPIUM BROM 0.5MG/2.5ML ONE (01:59)
[2022-08-06] MEDS ORDERED: NA CHLORIDE 0.9% 100 ML ONE (02:01)
[2022-08-06] MEDS ORDERED: PIPERACIL/TAZO 3.375 GM VIAL IV ONE (02:02)
--- NOTE | 2022-08-06 02:19 | EDPHYS ---
Physician Documentation [facility] Name: Inocencia Rucker Age: 77 yrs Sex: Female : 1945 Arrival Date: 08/06/2022 Time: 01:00 Bed 2 Private MD: EREN Physician Marco A Norton HPI: 08/06 01:24 This 77 yrs old Female presents to ER via EMS with complaints of Abdominal roberto Pain. 01:24 The patient presents with abdominal pain in the upper abdomen, abdominal distention in roberto the upper abdomen, in the lower abdomen. Onset: The symptoms/episode began/occurred 6 hour(s) ago. The symptoms do not radiate. Associated signs and symptoms: Pertinent positives: nausea and vomiting. The symptoms are described as constant, crampy. Modifying factors: The symptoms are alleviated by nothing, the symptoms are aggravated by movement, nothing. pressure, touching the area. Severity of pain: At its worst the pain was moderate in the emergency department the pain is unchanged. The patient has experienced similar episodes in the past, a few times. Historical: - Allergies: 01:04 Codeine; kl - Home Meds: 01:28 losartan 50 mg oral tab 1 tab once daily [Active]; hydrochlorothiazide 12.5 mg Oral cap kl 1 cap once daily [Active]; simvastatin 40 mg Oral tab 1 tab once daily [Active]; montelukast 10 mg oral tab 1 tab once daily [Active]; breo ellipta daily [Active]; spiriva daily [Active]; proair as needed [Active]; calcitonin [Active]; amlodipine 5 mg tab 1 tab once daily [Active]; - PMHx: 01:04 Hypertension; COPD; High Cholesterol; Gallstone; kl - PSHx: 01:04 back surgery; kl - Immunization history:: Adult Immunizations up to date. - Social history:: Smoking status: Patient reports the use of cigarette tobacco products, smokes one pack cigarettes per day. - Family history:: not pertinent. ROS: 01:24 Constitutional: Negative for fever, chills, and weight loss, Eyes: Negative for injury, roberto pain, redness, and discharge, ENT: Negative for injury, pain, and discharge, Neck: Negative for injury, pain, and swelling, Cardiovascular: Negative for chest pain, palpitations, and edema, Respiratory: Negative for shortness of breath, cough, wheezing, and pleuritic chest pain, Back: Negative for injury and pain, : Negative for injury, bleeding, discharge, and swelling, MS/Extremity: Negative for injury and deformity, Skin: Negative for injury, rash, and discoloration, Neuro: Negative for headache, weakness, numbness, tingling, and seizure, Psych: Negative for depression, anxiety, suicide ideation, homicidal ideation, and hallucinations, Allergy/Immunology: Negative for hives, rash, and allergies, Endocrine: Negative for neck swelling, polydipsia, polyuria, polyphagia, and marked weight changes, Hematologic/Lymphatic: Negative for swollen nodes, abnormal bleeding, and unusual bruising. 01:24 Abdomen/GI: Positive for abdominal pain, nausea, vomiting, abdominal cramps, of the epigastric area, right upper quadrant and left upper quadrant. Exam: 01:24 Constitutional: This is a well developed, well nourished patient who is awake, alert, roberto and in no acute distress. Head/Face: Normocephalic, atraumatic. Eyes: Pupils equal round and reactive to light, extra-ocular motions intact. Lids and lashes normal. Conjunctiva and sclera are non-icteric and not injected. Cornea within normal limits. Periorbital areas with no swelling, redness, or edema. ENT: Nares patent. No nasal discharge, no septal abnormalities noted. Tympanic membranes are normal and external auditory canals are clear. Oropharynx with no redness, swelling, or masses, exudates, or evidence of obstruction, uvula midline. Mucous membranes moist. Neck: Trachea midline, no thyromegaly or masses palpated, and no cervical lymphadenopathy. Supple, full range of motion without nuchal rigidity, or vertebral point tenderness. No Meningismus. Chest/axilla: Normal chest wall appearance and motion. Nontender with no deformity. No lesions are appreciated. Cardiovascular: Regular rate and rhythm with a normal S1 and S2. No gallops, murmurs, or rubs. Normal PMI, no JVD. No pulse deficits. Respiratory: Lungs have equal breath sounds bilaterally, clear to auscultation and percussion. No rales, rhonchi or wheezes noted. No increased work of breathing, no retractions or nasal flaring. Back: No spinal tenderness. No costovertebral tenderness. Full range of motion. Female : Normal external genitalia. Skin: Warm, dry with normal turgor. Normal color with no rashes, no lesions, and no evidence of cellulitis. MS/ Extremity: Pulses equal, no cyanosis. Neurovascular intact. Full, normal range of motion. Neuro: Awake and alert, GCS 15, oriented to person, place, time, and situation. Cranial nerves II-XII grossly intact. Motor strength 5/5 in all extremities. Sensory grossly intact. Cerebellar exam normal. Normal gait. Psych: Awake, alert, with orientation to person, place and time. Behavior, mood, and affect are within normal limits. 01:24 Abdomen/GI: Inspection: abdomen appears normal, Bowel sounds: normal, Palpation: moderate abdominal tenderness, in the epigastric area, right upper quadrant and left upper quadrant, Liver: no appreciated palpable abnormalities, Hernia: noted in the umbilical area, incarceration, is not appreciated, tenderness, is not appreciated. Vital Signs: 01:01 BP 147 / 80; Pulse 77; Resp 28; Temp 98(TE); Pulse Ox 99% on R/A; Weight 73.48 kg (M); kl Height 5 ft. 2 in. (157.48 cm); Pain 10/10; 01:33 BP 131 / 112; Pulse 82; kl 03:01 BP 129 / 93; Pulse 118; Resp 36; Pulse Ox 99% on 3 lpm NC; kl 03:52 Pulse 115; Resp 32; Pulse Ox 97% on 3 lpm NC; kl 04:01 BP 115 / 93; kl 04:09 BP 105 / 76; Pulse 103; Resp 32; Pulse Ox 96% ; kl 05:09 BP 118 / 84; Pulse 101; Resp 36; Pulse Ox 96% on 3 lpm NC; kl 05:50 BP 109 / 79; Pulse 103; Resp 36; Temp 98(TE); Pulse Ox 95% on 3 lpm NC; kl 01:01 Body Mass Index 29.63 (73.48 kg, 157.48 cm) kl MDM: 01:10 Patient medically screened. roberto 01:29 Differential diagnosis: bowel obstruction, cholecystitis, Cholelithiasis, roberto diverticulitis, gastritis, gastroesophageal reflux disease, GI Bleed, Mesenteric ischemia or infarction, non-specific abd pain, pancreatitis, Peptic Ulcer Disease, Pyelonephritis, Ureterolithiasis, urinary tract infection. Data reviewed: vital signs, nurses notes, lab test result(s), EKG, radiologic studies, CT scan. Consideration of Admission/Observation Patient was admitted/placed on observation. Escalation of care including admission/observation considered. I considered the following discharge prescriptions or medication management in the emergency department Medications were administered in the Emergency Department. See MAR. Test considered but Not performed: MRI: ABD/PELVIS. 08/06 01:12 Order name: CBC with Diff; Complete Time: 03:02 [facility] 08/06 01:12 Order name: CMP; Complete Time: 03:18 [facility] 08/06 01:12 Order name: Lipase; Complete Time: 03:18 [facility] 08/06 03:04 Order name: Magnesium; Complete Time: 03:37 [facility] 08/06 03:04 Order name: NT PRO-BNP; Complete Time: 03:37 [facility] 08/06 03:04 Order name: PT-INR; Complete Time: 03:18 [facility] 08/06 01:12 Order name: CT Abd/Pelvis - IV Contrast Only [facility] 08/06 01:24 Order name: US Abdomen Limited [facility] 08/06 03:04 Order name: Troponin HS; Complete Time: 03:37 [facility] 08/06 03:04 Order name: XRAY Chest (1 view) [facility] 08/06 03:22 Order name: CREATININE WHOLE BLOOD; Complete Time: 03:29 [facility] 08/06 03:39 Order name: SARS RAPID; Complete Time: 04:24 mw2 08/06 01:12 Order name: IV Saline Lock; Complete Time: 01: [facility] 08/06 01:12 Order name: Labs collected and sent; Complete Time: : [facility] 08/06 01:12 Order name: Urine Dipstick-Ancillary (obtain specimen); Complete Time: : [facility] 08/06 02:29 Order name: CONS Physician Consult [facility] 08/06 03:04 Order name: EKG; Complete Time: 03:04 [facility] 08/06 03:04 Order name: Cardiac monitoring [facility] 08/06 03:04 Order name: EKG - Nurse/Tech [facility] 08/06 03:04 Order name: O2 Per Protocol [facility] 08/06 03:04 Order name: O2 Sat Monitoring roberto Administered Medications: 01:15 Drug: Zofran (Ondansetron) 4 mg Route: IVP; Site: left antecubital; kl 01:20 Drug: Pepcid (famotidine) 20 mg Route: IVP; Site: left antecubital; kl 01:25 Drug: NS 0.9% 1000 ml Route: IV; Rate: 1 bolus; Site: left antecubital; kl 01:25 Drug: fentaNYL (PF) 50 mcg Route: IVP; Site: left antecubital; kl 02:30 Drug: SOLU-Medrol (methylPrednisoLONE) 125 mg Route: IVP; Site: left antecubital; kl 04:01 Follow up: Response: No adverse reaction kl 02:36 Drug: Zosyn (piperacillin-tazobactam) 3.375 grams Route: IVPB; Infused Over: 4 hrs; kl Site: left antecubital; 02:36 Drug: Xopenex (levalbuterol) 2.5 mg Route: Inhalation; kl 02:36 Drug: AtroVENT (ipratropium) Aerosol 0.5 mg Route: Inhalation; kl 04:02 Follow up: Response: No adverse reaction; Marked relief of symptoms kl Disposition Summary: 08/06/22 03:33 Transfer Ordered Transfer Location: [facility] roberto Reason: Higher level of care roberto Condition: Fair(08/06/22 03:33) roberto Problem: new(08/06/22 03:33) roberto Symptoms: have improved(08/06/22 03:33) roberto Accepting Physician: to [facility](08/06/22 07:00) mw2 Diagnosis - COPD/ Chronic obstructive pulmonary disease, unspecified(08/06/22 03:33) roberto - Epigastric abdominal tenderness roberto - Acute cholecystitis(08/06/22 03:33) roberto - Other cholelithiasis with obstruction(08/06/22 03:33) roberto - Calculus of gallbladder and bile duct with acute cholecystitis with obstruction roberto - Elevated white blood cell count(08/06/22 03:33) roberto Forms: - Medication Reconciliation Form roberto - SBAR form roberto Signatures: Dispatcher [employer] EDPaula Hill RN RN kl Anderson, Corey, MD MD cha Attema, Lee, STAGE SETTING PAINTER APPRENTICE-C STAGE SETTING PAINTER APPRENTICE-Cla1 Khadijah Hendrickson mw2 Corrections: (The following items were deleted from the chart) 02:19 Inpatient Admission roberto roberto 03:31 02:19 Mead, A roberto roberto 03: 02:19 Telemetry/MedSurg (Inpatient) roberto roberto 03: 02:19 Fair roberto roberto : 02:19 new roberto roberto : 02:19 have improved roberto roberto : 02:19 Standard roberto roberto : 02:19 roberto roberto : 02:19 COPD/ Chronic obstructive pulmonary disease, unspecified roberto roberto : 02:19 Other cholelithiasis with obstruction roberto roberto : 02:19 Acute cholecystitis roberto roberto : 02:19 Umbilical hernia without obstruction or gangrene roberto roberto : 03:02 Elevated white blood cell count roberto roberto 04:07 03:44 COVID-19/FLU A+B+MOL.LAB.BRZ ordered. EDMS EDMS 07:00 [facility] mw2
--- NOTE | 2022-08-06 02:19 | ER ---
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 Coronavirus screen: Vaccine status: Patient reports receiving the 2nd dose of the covid vaccine. Ebola Screen: Patient negative for fever greater than or equal to 101.5 degrees Fahrenheit, and additional compatible Ebola Virus Disease symptoms. Initial Sepsis Screen: Does the patient meet any 2 criteria? No. Patient's initial sepsis screen is negative. Does the patient have a suspected source of infection? No. Patient's initial sepsis screen is negative. Risk Assessment: Do you want to hurt yourself or someone else? Patient reports no desire to harm self or others. Onset of symptoms was August 05, 2022 at 19:00. 01:01 Method Of Arrival: EMS: [facility] 01:01 Acuity: SYLVAIN 3 03:00 Note O2 sat 88% on room air placed on NC \T\ 3 liters. Triage Assessment: 01:05 General: Appears distressed, uncomfortable, well developed, well nourished, Behavior is kl cooperative, anxious. Pain: Complains of pain in umbilical area Pain currently is 10 out of 10 on a pain scale. EENT: No deficits noted. No signs and/or symptoms were reported regarding the EENT system. Neuro: No deficits noted. Cardiovascular: No deficits noted. Respiratory: Airway is patent Trachea midline Respiratory effort is labored, Respiratory pattern is tachypnea. GI: Abdomen is Last BM was August 05, 2021. Bowel sounds present X 4 quads. Abd is soft Abdomen is tender to palpation in umbilical area. : No deficits noted. No signs and/or symptoms were reported regarding the genitourinary system. Derm: No deficits noted. No signs and/or symptoms reported regarding the dermatologic system. Historical: - Allergies: 01:04 Codeine; kl - Home Meds: 01:28 losartan 50 mg oral tab 1 tab once daily [Active]; hydrochlorothiazide 12.5 mg Oral cap kl 1 cap once daily [Active]; simvastatin 40 mg Oral tab 1 tab once daily [Active]; montelukast 10 mg oral tab 1 tab once daily [Active]; breo ellipta daily [Active]; spiriva daily [Active]; proair as needed [Active]; calcitonin [Active]; amlodipine 5 mg tab 1 tab once daily [Active]; - PMHx: 01:04 Hypertension; COPD; High Cholesterol; Gallstone; kl - PSHx: 01:04 back surgery; kl - Immunization history:: Adult Immunizations up to date. - Social history:: Smoking status: Patient reports the use of cigarette tobacco products, smokes one pack cigarettes per day. - Family history:: not pertinent. Screenin:07 [facility] ED Fall Risk Assessment (Adult) History of falling in the last 3 months, kl including since admission No falls in past 3 months (0 pts) Confusion or Disorientation No (0 pts) Intoxicated or Sedated No (0 pts) Impaired Gait Yes (1 pt) Mobility Assist Device Used No (0 pt) Altered Elimination No (0 pt) Score/Fall Risk Level 0 - 2 = Low Risk Oriented to surroundings, Maintained a safe environment. Abuse screen: Denies threats or abuse. Nutritional screening: No deficits noted. Tuberculosis screening: No symptoms or risk factors identified. Assessment: 01:07 Reassessment: see triage assessment. 03:57 Reassessment: No changes from previously documented assessment. Patient and/or family kl updated on plan of care and expected duration. Pain level reassessed. Patient is alert, oriented x 3, equal unlabored respirations, skin warm/dry/pink. Patient states feeling better. pt to be transferred verbalized understandig. Vital Signs: 01:01 BP 147 / 80; Pulse 77; Resp 28; Temp 98(TE); Pulse Ox 99% on R/A; Weight 73.48 kg (M); kl Height 5 ft. 2 in. (157.48 cm); Pain 10/10; 01:33 BP 131 / 112; Pulse 82; kl 03:01 BP 129 / 93; Pulse 118; Resp 36; Pulse Ox 99% on 3 lpm NC; kl 03:52 Pulse 115; Resp 32; Pulse Ox 97% on 3 lpm NC; kl 04:01 BP 115 / 93; kl 04:09 BP 105 / 76; Pulse 103; Resp 32; Pulse Ox 96% ; kl 05:09 BP 118 / 84; Pulse 101; Resp 36; Pulse Ox 96% on 3 lpm NC; kl 05:50 BP 109 / 79; Pulse 103; Resp 36; Temp 98(TE); Pulse Ox 95% on 3 lpm NC; kl 01:01 Body Mass Index 29.63 (73.48 kg, 157.48 cm) ED Course: 01:00 Patient arrived in ED. ag3 01:04 Triage completed. 01:07 Inserted saline lock: 20 gauge in left antecubital area, using aseptic technique. Blood kl collected. 01:10 Marco A Norton MD is Attending Physician. roberto 01:26 CBC with Diff Sent. kl 01:26 CMP Sent. kl 01:53 US Abdomen Limited In Process Unspecified. EDMS 02:15 CT Abd/Pelvis - IV Contrast Only In Process Unspecified. EDMS 02:17 Rachelle Mead MD is Hospitalizing Provider. roberto 03:13 Notified ED physician of a critical lab result(s). ALT of 320, AST of 451 Dr Norton bb notified. 03:40 initiated a transfer with David from [facility]. mw2 03:56 norbert care complete pure wick applied pt tolerated well. kl 04:00 XRAY Chest (1 view) In Process Unspecified. EDMS 04:20 called [facility] to give them the covid result. mw2 04:[address] Norton with the Dr. Tobin from [facility]. mw2 04:[address] Norton with the Surgeon from [facility]. mw2 04:53 administrative approval given by Chato Mckoen/ patient has been accepted to [address] [place] bed 9/ Dr. Tobin accepted the patient in transfer/report to be called to [phone]. 05:09 No apparent distress. Resting quietly. Appears to be sleeping. kl Administered Medications: 01:15 Drug: Zofran (Ondansetron) 4 mg Route: IVP; Site: left antecubital; kl 01:20 Drug: Pepcid (famotidine) 20 mg Route: IVP; Site: left antecubital; kl 01:25 Drug: NS 0.9% 1000 ml Route: IV; Rate: 1 bolus; Site: left antecubital; kl 01:25 Drug: fentaNYL (PF) 50 mcg Route: IVP; Site: left antecubital; kl 02:30 Drug: SOLU-Medrol (methylPrednisoLONE) 125 mg Route: IVP; Site: left antecubital; kl 04:01 Follow up: Response: No adverse reaction kl 02:36 Drug: Zosyn (piperacillin-tazobactam) 3.375 grams Route: IVPB; Infused Over: 4 hrs; Site: left antecubital; 02:36 Drug: Xopenex (levalbuterol) 2.5 mg Route: Inhalation; kl 02:36 Drug: AtroVENT (ipratropium) Aerosol 0.5 mg Route: Inhalation; kl 04:02 Follow up: Response: No adverse reaction; Marked relief of symptoms kl Medication: 01:07 VIS not applicable for this client. kl Outcome: 02:19 Decision to Hospitalize by Provider. roberto 03:33 ER care complete, transfer ordered by . roberto 07:00 Patient left the ED. mw2 Signatures: Dispatcher [employer] EDPaula Hill RN RN kl Anderson, Corey, MD MD cha Ballard, Brenda, RN RN bb Gatti, MyKena mw2 Emily Taylor 3
[2022-08-06 02:32] LABS: Absolute Lymphocytes (CBC) 0.6 K/uL (0.7-4.9); Hematocrit 50.5 % (36.0-45.0); Lymphocytes % 4.4 % (15.3-44.8); MCV 101.6 fL (80-100); MPV 9.3 fL (7.6-11.3); RBC Red Blood Cell Count 4.97 M/uL (3.86-4.86)
[2022-08-06 03:08] LABS: Albumin 4.4 g/dL (3.4-5.0); Bilirubin Total 2.8 mg/dL (0.2-1.0); Potassium 3.4 mmol/L (3.5-5.1); Protein, Total 8.2 g/dL (6.4-8.2)
[2022-08-06 03:14] LABS: Protime INR 0.9
[2022-08-06 03:29] LABS: Magnesium 1.8 mg/dL (1.6-2.4); Troponin High Sensitivity 5.2 pg/mL (<58.9)
[2022-08-06 04:04] LABS: SARS-CoV-2 Antigen Rapid Res Negative (Negative)
[2022-08-06 07:07] VITALS: TEMP 98
[2022-08-06 07:16] VITALS: BP 109/79; O2SAT 95
--- NOTE | 2022-08-06 13:54 | RAD REPORT ---
EXAM DESCRIPTION: US - Abdomen Exam Limited - 08/06/2022 1:51 am CLINICAL HISTORY: 77 years, Female, Abdominal pain, acute, nonlocalized COMPARISON: None. TECHNIQUE: Contrast-enhanced images of the abdomen and pelvis were performed utilizing 5 mm slice th ickness at 5 mm interval reconstruction from the lung bases to the ischial tuberosities after the adm inistration of IV contrast. In addition multiplanar reformats in the coronal and sagittal plane were obtained and reviewed. This exam was performed according to our departmental dose-optimization protocol, which includes auto mated exposure control, adjustment of the mA and/or kV according to patient size and/or use of iterat jerrica reconstruction technique. FINDINGS: The lung bases demonstrate to be clear. There is a small hiatal hernia. The liver, pancreas, spleen and adrenal glands demonstrate to be unremarkable, no focal lesions are n oted. There is mild hypertrophy bilateral adrenal glands. There is a ovoid rim radiodensity within the region of the gallbladder neck corresponding to a calcul us. There is minimal gallbladder wall enhancement and trace of pericholecystic fluid. Findings are hawkins spicious for acute cholecystitis. There is mild prominence of the biliary system centrally. The kidneys demonstrate normal uptake of contrast media. No evidence for nephrolithiasis and/or hydro nephrosis. There are bilateral simple renal cysts with the largest one anterior lower pole left kidne y measuring 2.2 x 2.2 cm on image 37. Grossly the unopacified stomach, small bowel and large bowel demonstrate to be within normal limits. There is no evidence for bowel dilatation/or free air. The left site colon is decompressed with no gross abnormalities. There is a umbilical hernia containing omentum with minimal haziness perhaps suggesting fluid/or irri tation. The urinary bladder demonstrate to be unremarkable. The uterus is somewhat atrophic. There are no a dnexal masses. The aorta demonstrate atherosclerotic disease extending into the aortic bifurcation there is dilatation infrarenal abdominal aorta measuring 2.8 x 2.4 cm. There is no retroperitoneal lymphadenopathy. There is no evidence for ascites/or abnormal fluid collections. The lumbar spine demonstrate status post laminectomy at L4/L5 disc level. IMPRESSION: Cholelithiasis with minimal gallbladder wall enhancement and trace of pericholecystic fl uid suspicious for acute cholecystitis. Small hiatal hernia. Bilateral simple renal cysts. Umbilical hernia containing omentum with minimal haziness perhaps suggesting fluid/or irritation. 2.8 cm infrarenal abdominal aortic aneurysm suspected. Recommend follow-up every 5 years. Reference: J Am Chris Radiol 2013;10:789-794. Status post laminectomy at L4/L5 disc level. Electronically signed by: Darryl Andrews MD 08/06/2022 2:33 AM WELT BEATER Due to temporary technical issues with the PACS/Fluency reporting system, reports are being signed by the in house radiologists without review as a courtesy to insure prompt reporting. The interpreting radiologist is fully responsible for the content of the report.
--- NOTE | 2022-08-06 14:01 | RAD REPORT ---
EXAM DESCRIPTION: CT - Abdomen Pelvis W Contrast - 08/06/2022 6:20 am CLINICAL HISTORY: 77 years, Female, Abdominal pain, acute, nonlocalized COMPARISON: None. TECHNIQUE: Contrast-enhanced images of the abdomen and pelvis were performed utilizing 5 mm slice th ickness at 5 mm interval reconstruction from the lung bases to the ischial tuberosities after the adm inistration of IV contrast. In addition multiplanar reformats in the coronal and sagittal plane were obtained and reviewed. This exam was performed according to our departmental dose-optimization protocol, which includes auto mated exposure control, adjustment of the mA and/or kV according to patient size and/or use of iterat jerrica reconstruction technique. FINDINGS: The lung bases demonstrate to be clear. There is a small hiatal hernia. The liver, pancreas, spleen and adrenal glands demonstrate to be unremarkable, no focal lesions are n oted. There is mild hypertrophy bilateral adrenal glands. There is a ovoid rim radiodensity within the region of the gallbladder neck corresponding to a calcul us. There is minimal gallbladder wall enhancement and trace of pericholecystic fluid. Findings are hawkins spicious for acute cholecystitis. There is mild prominence of the biliary system centrally. The kidneys demonstrate normal uptake of contrast media. No evidence for nephrolithiasis and/or hydro nephrosis. There are bilateral simple renal cysts with the largest one anterior lower pole left kidne y measuring 2.2 x 2.2 cm on image 37. Grossly the unopacified stomach, small bowel and large bowel demonstrate to be within normal limits. There is no evidence for bowel dilatation/or free air. The left site colon is decompressed with no gross abnormalities. There is a umbilical hernia containing omentum with minimal haziness perhaps suggesting fluid/or irri tation. The urinary bladder demonstrate to be unremarkable. The uterus is somewhat atrophic. There are no a dnexal masses. The aorta demonstrate atherosclerotic disease extending into the aortic bifurcation there is dilatation infrarenal abdominal aorta measuring 2.8 x 2.4 cm. There is no retroperitoneal lymphadenopathy. There is no evidence for ascites/or abnormal fluid collections. The lumbar spine demonstrate status post laminectomy at L4/L5 disc level. IMPRESSION: Cholelithiasis with minimal gallbladder wall enhancement and trace of pericholecystic fl uid suspicious for acute cholecystitis. Small hiatal hernia. Bilateral simple renal cysts. Umbilical hernia containing omentum with minimal haziness perhaps suggesting fluid/or irritation. 2.8 cm infrarenal abdominal aortic aneurysm suspected. Recommend follow-up every 5 years. Reference: J Am Chris Radiol 2013;10:789-794. Status post laminectomy at L4/L5 disc level. Electronically signed by: Darryl Andrews MD 08/06/2022 2:33 AM [employer]ICE ANALYST Due to temporary technical issues with the PACS/Fluency reporting system, reports are being signed by the in house radiologists without review as a courtesy to insure prompt reporting. The interpreting radiologist is fully responsible for the content of the report.
--- NOTE | 2022-08-06 14:03 | RAD REPORT ---
EXAM DESCRIPTION: RAD - Chest Single View - 08/06/2022 3:58 am CLINICAL HISTORY: 77 years Female, COPD COMPARISON: CT chest report from 04/25/2021. The images were unavailable for review. TECHNIQUE: Single portable x-ray view of the chest performed on 08/06/2022 at 3:42 AM FINDINGS: Lungs are well-expanded and are grossly clear. There is a 7 mm right upper lobe nodule lik sylwia representing a granuloma. A similar finding was previously described on the prior chest CT. There is a probable small granuloma in the left hilar region. No dense airspace consolidation is identifie d. The lateral costophrenic sulci are grossly clear. There is no evidence of a pneumothorax. The cardiac silhouette is normal in size and configuration. The mediastinal contours are normal. No acute osseous abnormality is identified. There are degenerative changes of the shoulders and spine . No acute soft tissue abnormalities are seen. Lines and tubes: None. Free air: None IMPRESSION: 1. No evidence of acute intrathoracic disease. 2. Findings suggest prior granulomatous disease. Electronically signed by: Amanda Whitehead DO 08/06/2022 4:40 AM [facility] Due to temporary technical issues with the PACS/Fluency reporting system, reports are being signed by the in house radiologists without review as a courtesy to insure prompt reporting. The interpreting radiologist is fully responsible for the content of the report.
== END 2022-08-06 07:00 | disposition short-term general hospital (02) ==
LOC: ER 00:57 → UNDOADMIN 03:12 → ERHOLD 03:12 → ER 07:00
DX: K80.01 Calculus of gallbladder with acute cholecystitis with obstruction (principal); K80.63 Calculus of gallbladder and bile duct with acute cholecystitis with obstruction; J44.9 Chronic obstructive pulmonary disease, unspecified; D72.829 Elevated white blood cell count, unspecified; F17.210 Nicotine dependence, cigarettes, uncomplicated; I10 Essential (primary) hypertension; E78.00 Pure hypercholesterolemia, unspecified; Z20.822 Contact with and (suspected) exposure to COVID-19; Z88.5 Allergy status to narcotic agent
CPT/HCPCS: 85025; 36415; 83735; 85610; 82565; 84484; 83690; 80053; 83880; 74177; 71045; 76705; 87811; Q9967; J7614; J2543; J7644; J3010; J7030; J2405